=== PATIENT | female | born 1950 | race African-American/Black ===

== ENCOUNTER 2017-08-01 10:39 | Outpatient (CLI) | payer OTHER ==
[2017-08-01 11:40] LABS: PTT 30.1 SEC (22.9-36.1); Prothrombin Time 13.7 SEC (12.0-14.7)
[2017-08-01 11:42] LABS: Hemoglobin 12.4 g/dL (12.0-16.0); Mean Corpuscular HGB CONC 32.1 g/dL (32.0-36.0); Mean Corpuscular Volume 90.2 fl (81.0-99.0); Mean Platelet Volume 8.3 fL (7.4-10.4); Platelet Count 265 thou/uL (130-400); RBC Distribution Width 12.6 % (11.5-14.5); Red Blood Cell (RBC) Count 4.27 mill/uL (4.20-5.40); White Blood Cell (WBC) Count 7.2 thou/uL (4.8-10.8)
[2017-08-01 12:00] LABS: ALT (SGPT) 16 U/L (8-55); AST (SGOT) 15 U/L (5-34); Albumin 4.2 g/dL (3.4-4.8); Alkaline Phosphatase 91 U/L (40-150); Anion Gap 14 mmol/L (10-20); BUN (Urea Nitrogen) 10 mg/dL (9.8-20.1); Bilirubin, Total 0.9 mg/dL (0.2-1.2); Calc. Creatinine Clearance 0 mL/min (70-130); Calcium 9.5 mg/dL (7.8-10.44); Carbon Dioxide 22 mmol/L (23-31); Chloride 109 mmol/L (98-107); Estimated GFR-MDRD 80; Globulin 3.7 g/dL (2.4-3.5); Glucose 200 mg/dL (80-115); Potassium 3.7 mmol/L (3.5-5.1); Protein, Total 7.9 g/dL (6.0-8.3); Sodium 141 mmol/L (136-145)
== END 2017-08-01 10:40 | disposition home or self-care (01) ==
LOC: LABBT 10:39
PROVIDERS: ATTEND Internal Medicine Cardiovascular Disease
DX: Z01.818 Encounter for other preprocedural examination (principal); R94.39 Abnormal result of other cardiovascular function study
CPT/HCPCS: 80053; 85027; 85610; 85730; 93005; 93010

== ENCOUNTER 2017-08-06 05:41 | Day surgery (SDC) | payer OTHER ==
[2017-08-01 11:19] VITALS: BMI 50.1
[2017-08-06] MEDS ORDERED: Iopamidol 370 76% 50 ML VIAL FS ONE (06:39)
[2017-08-06] MEDS ORDERED: Iopamidol 370 76% 100 ML VIAL ONE (06:39)
[2017-08-06] MEDS ORDERED: Heparin 10,000 UNITS/1 ML VIAL ONE (06:41)
[2017-08-06] MEDS ORDERED: Lidocaine 1% (PF) 30 ML VIAL ONE (06:43)
[2017-08-06] MEDS ORDERED: hydrALAZINE 20 MG/ML VIAL ONE ×3 (07:20→12:44)
--- NOTE | 2017-08-06 07:33 | RAD ---
CHEST 1 VIEW PORTABLE: Date: 08/06/17 HISTORY: 66-year-old female with history of preoperative evaluation for heart catheterization. COMPARISON: 12/24/02. FINDINGS: Mild cardiomegaly. Minimal stable increased linear and interstitial markings in the perihilar regions . There is review of prior exam from 08/12/06 as well. No confluent pneumonia, overt edema, or other acute process. IMPRESSION: Large body habitus lowers the sensitivity of this study. Minimal cardiomegaly with stable increased m arkings bilaterally without evidence for confluent pneumonia or overt edema. POS: OFF
[2017-08-06] MEDS ORDERED: Metoprolol Tartrate 5 MG/5 ML VIAL ONE ×2 (07:44→08:44)
[2017-08-06] MEDS ORDERED: Protamine Sulfate 50 MG/5 ML VIAL ONE (07:56)
[2017-08-06] MEDS ORDERED: Carvedilol 6.25 MG TAB PO SCH ×2 (08:15→16:30)
[2017-08-06] MEDS ORDERED: Nitroglycerin 4.9 GM Bottle ONE (08:44)
[2017-08-06] MEDS ORDERED: traMADol HCl 50 MG TAB ONE (12:49)
[2017-08-06] MEDS ORDERED: Acetaminophen/Codeine 30-300mg Tablet PO PRN ×2 (13:21)
[2017-08-06] MEDS ORDERED: Sodium Chloride 0.9% 1,000 ML IV SCH (13:21)
[2017-08-06] MEDS ORDERED: Nitroglycerin 0.4 MG TAB (25 Tab Bottle) SL PRN (13:21)
[2017-08-06] MEDS ORDERED: traMADol HCl 50 MG TAB PO PRN (13:21)
[2017-08-06] MEDS ORDERED: Lisinopril 10 MG TAB ONE (15:56)
[2017-08-06] MEDS ORDERED: Carvedilol 3.125 MG TAB ONE ×2 (16:06)
[2017-08-06] MEDS ORDERED: Lisinopril 20 MG TAB PO SCH (16:30)
== END 2017-08-06 16:50 | disposition home or self-care (01) ==
LOC: CCL 05:41
PROVIDERS: ATTEND Internal Medicine Cardiovascular Disease
PROC: 4A023N7 Measurement of Cardiac Sampling and Pressure, Left Heart, Percutaneous Approach (ICD-10-PCS; principal; 2017-08-06)
DX: R94.39 Abnormal result of other cardiovascular function study (principal); I11.0 Hypertensive heart disease with heart failure; I50.9 Heart failure, unspecified; I42.9 Cardiomyopathy, unspecified; E11.9 Type 2 diabetes mellitus without complications; M19.90 Unspecified osteoarthritis, unspecified site; G47.33 Obstructive sleep apnea (adult) (pediatric); E78.00 Pure hypercholesterolemia, unspecified; E66.09 Other obesity due to excess calories; Z68.43 Body mass index [BMI] 50.0-59.9, adult; Z88.0 Allergy status to penicillin
CPT/HCPCS: 71045; 76942; 93458; 96374; C1769; J0360; J1610; J1644; J2001; J2720

== ENCOUNTER 2017-08-28 20:30 | Outpatient (CLI) | payer OTHER | END 2017-08-28 20:31 | disposition home or self-care (01) | LOC: SLEEPLAB 20:30 | PROVIDERS: ATTEND Family Medicine | DX: G47.33 Obstructive sleep apnea (adult) (pediatric) (principal); G47.9 Sleep disorder, unspecified; R51 Headache; I10 Essential (primary) hypertension | CPT/HCPCS: 95811 ==

== ENCOUNTER 2018-02-14 13:25 | Outpatient (CLI) | payer MEDICARE, OTHER | END 2018-02-14 13:26 | disposition home or self-care (01) | LOC: BICMAMMO 13:25 | PROVIDERS: ATTEND Family Medicine | DX: Z12.31 Encounter for screening mammogram for malignant neoplasm of breast (principal); Z80.3 Family history of malignant neoplasm of breast | CPT/HCPCS: 77063; 77067 ==

== ENCOUNTER 2018-04-24 11:22 | Emergency (ER) | payer MEDICARE, MEDICAID ==
[2018-04-24 13:09] LABS: #Eosinphils 0.2 thou/uL (0.0-0.7); #Lymphocytes 1.9 thou/uL (1.20-3.40); #Monocytes 0.4 thou/uL (0.11-0.59); #Neutrophils 2.9 thou/uL (1.40-6.50); %Basophils 0.7 % (0.0-1.0); %Eosinophils 3.4 % (0.0-10.0); %Lymphocytes 34.8 % (21.0-51.0); %Monocytes 7.8 % (0.0-10.0); %Neutrophils 53.3 % (42.0-75.0); Hemoglobin 13.4 g/dL (12.0-16.0); Mean Corpuscular HGB CONC 32.7 g/dL (32.0-36.0); Mean Corpuscular Hemoglobin 30.5 pg (27.0-31.0); Mean Corpuscular Volume 93.2 fL (78.0-98.0); Mean Platelet Volume 9.4 fL (7.4-10.4); Platelet Count 187 thou/uL (130-400); RBC Distribution Width 11.9 % (11.5-14.5); Red Blood Cell (RBC) Count 4.39 mill/uL (4.20-5.40); White Blood Cell (WBC) Count 5.5 thou/uL (4.8-10.8)
[2018-04-24 13:29] LABS: ALT (SGPT) 9 U/L (8-55); AST (SGOT) 11 U/L (5-34); Albumin 3.7 g/dL (3.4-4.8); Alkaline Phosphatase 114 U/L (40-150); Anion Gap 12 mmol/L (10-20); BUN (Urea Nitrogen) 8 mg/dL (9.8-20.1); Bilirubin, Total 0.7 mg/dL (0.2-1.2); Calc. Creatinine Clearance 0 mL/min (70-130); Calcium 9.5 mg/dL (7.8-10.44); Carbon Dioxide 24 mmol/L (23-31); Chloride 105 mmol/L (98-107); Estimated GFR-MDRD 64; Globulin 3.6 g/dL (2.4-3.5); Glucose 329 mg/dL (80-115); Potassium 3.8 mmol/L (3.5-5.1); Protein, Total 7.3 g/dL (6.0-8.3); Sodium 137 mmol/L (136-145)
[2018-04-24 14:37] LABS: Bilirubin Negative (Negative); Blood, Urine Negative (Negative); Clarity CLEAR (Clear); Glucose, Urine (Dipstick) >=1000 mg/dL (Negative); Leukocyte Negative (Negative); Nitrite Negative (Negative); Protein, Urine (Dipstick) Negative (Neg-Trace); Specific Gravity, Urine 1.032 (1.002-1.036)
[2018-04-24] MEDS ORDERED: Insulin Regular 300 UNITS/3 ML VIAL ONE (15:18)
== END 2018-04-24 15:50 | disposition home or self-care (01) ==
LOC: ERS 11:22
DX: E13.65 Other specified diabetes mellitus with hyperglycemia (principal); I10 Essential (primary) hypertension; G47.30 Sleep apnea, unspecified; E78.5 Hyperlipidemia, unspecified; Z79.899 Other long term (current) drug therapy; Z79.4 Long term (current) use of insulin
CPT/HCPCS: 36415; 36416; 80053; 81003; 85025; 99283; J1815

== ENCOUNTER 2019-01-29 12:59 | Emergency (ER) | payer MEDICARE, OTHER ==
[2019-01-29 13:38] LABS: #Basophils 0.1 thou/uL (0.0-0.2); #Eosinphils 0.1 thou/uL (0.0-0.7); #Lymphocytes 2.1 thou/uL (1.20-3.40); #Monocytes 0.8 thou/uL (0.11-0.59); #Neutrophils 5.6 thou/uL (1.40-6.50); %Basophils 0.6 % (0.0-1.0); %Eosinophils 1.1 % (0.0-10.0); %Lymphocytes 24.7 % (21.0-51.0); %Monocytes 9.3 % (0.0-10.0); %Neutrophils 64.4 % (42.0-75.0); Hemoglobin 11.7 g/dL (12.0-16.0); Mean Corpuscular HGB CONC 32.5 g/dL (32.0-36.0); Mean Corpuscular Hemoglobin 29.9 pg (27.0-31.0); Mean Platelet Volume 7.8 fL (7.4-10.4); Platelet Count 246 thou/uL (130-400); RBC Distribution Width 12.8 % (11.5-14.5); Red Blood Cell (RBC) Count 3.92 mill/uL (4.20-5.40); White Blood Cell (WBC) Count 8.7 thou/uL (4.8-10.8)
[2019-01-29 13:57] LABS: ALT (SGPT) 12 U/L (8-55); AST (SGOT) 10 U/L (5-34); Albumin 4.1 g/dL (3.4-4.8); Alkaline Phosphatase 99 U/L (40-110); Anion Gap 12 mmol/L (10-20); BUN (Urea Nitrogen) 17 mg/dL (9.8-20.1); Bilirubin, Total 0.3 mg/dL (0.2-1.2); Calc. Creatinine Clearance 0 mL/min (70-130); Calcium 9.7 mg/dL (7.8-10.44); Carbon Dioxide 27 mmol/L (23-31); Chloride 106 mmol/L (98-107); Estimated GFR-MDRD 59; Globulin 3.7 g/dL (2.4-3.5); Glucose 163 mg/dL (80-115); Potassium 3.8 mmol/L (3.5-5.1); Protein, Total 7.8 g/dL (6.0-8.3); Sodium 141 mmol/L (136-145)
[2019-01-29] MEDS ORDERED: hydrALAZINE 10 MG TAB PO SCH (14:45)
== END 2019-01-29 15:03 | disposition home or self-care (01) ==
LOC: ERS 12:59
DX: I10 Essential (primary) hypertension (principal); E11.9 Type 2 diabetes mellitus without complications; E78.00 Pure hypercholesterolemia, unspecified; Z79.899 Other long term (current) drug therapy; Z79.4 Long term (current) use of insulin
CPT/HCPCS: 80053; 83880; 84484; 85025; 93005

== ENCOUNTER 2019-03-03 13:13 | Outpatient (CLI) | payer MEDICARE, MEDICAID ==
--- NOTE | 2019-03-03 15:01 | BD ---
DEXA BONE DENSITY STUDY: HISTORY: Postmenopausal. LUMBAR SPINE BMD (g/cm2) T-SCORE L1 1.060 +0.6 L2 1.095 +0.6 L3 1.063 -0.2 L4 0.982 -0.7 TOTAL 1.046 +0.0 LEFT FEMORAL NECK 1.051 +1.8 TOTAL 1.115 +1.4 IMPRESSION: Normal bone mineral density of the lumbar spine and left femoral neck. POS: JEFFREY
--- NOTE | 2019-03-03 15:53 | MMO ---
Bilateral MAMMO Bilat Screen DDI+AGNES. CLINICAL HISTORY: Patient is 68 years old and is seen for screening. The patient has no family history of breast cancer. The patient has no personal history of cancer. VIEWS: The views performed were: bilateral craniocaudal with tomosynthesis and bilateral mediolateral oblique with tomosynthesis. FILMS COMPARED: The present examination has been compared to a prior imaging study performed at [facility] on 02/14/2018. This study has been interpreted with the assistance of computer-aided detection. MAMMOGRAM FINDINGS: There are scattered fibroglandular densities. There are benign appearing calcifications seen in both breasts. There are no suspicious masses, suspicious calcifications, or new areas of architectural distortion. IMPRESSION: THERE IS NO MAMMOGRAPHIC EVIDENCE OF MALIGNANCY. A ROUTINE FOLLOW-UP MAMMOGRAM IN 1 YEAR IS RECOMMENDED. THE RESULTS OF THIS EXAM WERE SENT TO THE PATIENT. ACR BI-RADS Category 2 - Benign finding MAMMOGRAPHY NOTE: 1. A negative mammogram report should not delay a biopsy if a dominant of clinically suspicious mass is present. 2. Approximately 10% to 15% of breast cancers are not detected by mammography. 3. Adenosis and dense breasts may obscure an underlying neoplasm. Reported by: FRANKIE GIRALDO MD Electonically Signed: [id number]
== END 2019-03-03 13:14 | disposition home or self-care (01) ==
LOC: BICMAMMO 13:13
PROVIDERS: ATTEND Family Medicine
DX: Z12.31 Encounter for screening mammogram for malignant neoplasm of breast (principal); Z13.820 Encounter for screening for osteoporosis; Z78.0 Asymptomatic menopausal state
CPT/HCPCS: 77063; 77067; 77080

== ENCOUNTER 2019-08-17 08:59 | Outpatient (CLI) | payer MEDICARE, MEDICAID, OTHER ==
[2019-08-17 17:08] LABS: Hemoglobin 12.5 g/dL (12.0-16.0); Mean Corpuscular HGB CONC 31.8 g/dL (32.0-36.0); Mean Corpuscular Volume 91.1 fL (78.0-98.0); Mean Platelet Volume 8.5 fL (7.4-10.4); Platelet Count 243 thou/uL (130-400); RBC Distribution Width 13.3 % (11.5-14.5); Red Blood Cell (RBC) Count 4.31 mill/uL (4.20-5.40); White Blood Cell (WBC) Count 8.3 thou/uL (4.8-10.8)
[2019-08-17 17:25] LABS: Anion Gap 12 mmol/L (10-20); BUN (Urea Nitrogen) 16 mg/dL (9.8-20.1); Calc. Creatinine Clearance 0 mL/min (70-130); Calcium 9.9 mg/dL (7.8-10.44); Carbon Dioxide 26 mmol/L (23-31); Chloride 108 mmol/L (98-107); Estimated GFR-MDRD 48; Glucose 117 mg/dL (80-115); Potassium 4.2 mmol/L (3.5-5.1); Sodium 142 mmol/L (136-145)
[2019-08-18 11:12] LABS: SARS-CoV-2 MS2 Positive; SARS-CoV-2 N Gene Negative; SARS-CoV-2 S Gene Negative; SARS-CoV-2 orf1ab Negative
== END 2019-08-17 09:00 | disposition home or self-care (01) ==
LOC: LABBT 08:59
PROVIDERS: ATTEND Orthopaedic Surgery
DX: Z01.818 Encounter for other preprocedural examination (principal); Z11.59 Encounter for screening for other viral diseases; M13.842 Other specified arthritis, left hand
CPT/HCPCS: 80048; 85027; 93005; U0003; 87635; 93010

== ENCOUNTER 2019-08-20 09:25 | Day surgery (SDC) | payer MEDICARE, MEDICAID ==
[2019-08-17 16:05] VITALS: BMI 45.8
[2019-08-20] MEDS ORDERED: Clindamycin/D5W 900 mg/50 ml Premix Bag ONE (10:01)
[2019-08-20] MEDS ORDERED: Fentanyl 100 MCG/2 ML VIAL ONE (11:29)
[2019-08-20] MEDS ORDERED: Lidocaine 2% Jelly 5 ML TUBE ONE (11:39)
[2019-08-20] MEDS ORDERED: Bupivacaine PF 0.5% 30 ML VIAL ONE (12:22)
[2019-08-20] MEDS ORDERED: PHENYLEPHRINE-NS 100 MCG/ML 10 ML SYRINGE ONE ×2 (12:39→12:43)
[2019-08-20] MEDS ORDERED: Lidocaine 1% PF 5 ML VIAL ONE (12:43)
[2019-08-20] MEDS ORDERED: Glycopyrrolate 0.2 MG/ML 5 ML SYRINGE ONE (12:43)
[2019-08-20] MEDS ORDERED: Ondansetron PF 4 MG/2 ML Vial ONE (12:43)
[2019-08-20] MEDS ORDERED: PROPOFOL 200 MG/20 ML VIAL ONE (12:43)
[2019-08-20] MEDS ORDERED: Succinylcholine Chloride 20 MG/ML 10 ml SYRINGE FS ONE (12:43)
[2019-08-20] MEDS ORDERED: Rocuronium Bromide 10 MG/ML (10ML VIAL) ONE (12:43)
[2019-08-20] MEDS ORDERED: EPHEDRINE 25 MG/5 ML SYRINGE ONE (12:43)
--- NOTE | 2019-08-20 14:24 | RAD ---
LEFT WRIST: 08/20/19 Three fluoroscopic images from OR are presented. INDICATIONS: Intraoperative imaging during carpal tunnel procedure. FINDINGS/IMPRESSION: These images demonstrate partial imaging of the carpals and imaging of the metacarpals. Evidence of o perative change at the first carpometacarpal joint. POS: AGW
--- NOTE | 2019-08-20 20:04 | OP ---
DATE OF PROCEDURE: 08/20/2019 PREOPERATIVE DIAGNOSES: 1. Severe arthritis of the first carpometacarpal joint of the left thumb. 2. Left carpal tunnel syndrome. POSTOPERATIVE DIAGNOSES: 1. Severe arthritis of the first carpometacarpal joint of the left thumb. 2. Left carpal tunnel syndrome. PROCEDURES PERFORMED: 1. Soft tissue arthroplasty of the first carpometacarpal joint of the left thumb. 2. Left carpal tunnel release. ANESTHESIA: General. DESCRIPTION OF PROCEDURE: The patient was given preoperative IV antibiotics, taken to the operating room, placed in supine position. Satisfactory general anesthesia was performed. The left upper extremity was sterilely prepped and draped in usual fashion. After exsanguination, tourniquet of the left arm was raised to 250 mmHg. Initially, a longitudinal incision was made over the carpal canal, approximately 1.5 cm in length. Blunt and sharp dissection was made down through the palmar fascia. Median nerve was identified and using the [employer] carpal tunnel release instruments, the interval between the median nerve and the transverse carpal ligament was isolated and the special scalpel used to cut the transverse carpal ligament, made sure there was no constrictive tissue into the palm or proximally into the wrist. Median nerve was completely released. The wound was irrigated and closed with 3-0 Rapide. A curvilinear incision was then made starting on the dorsum at the base of the thumb and extending around to the area of the flexor carpi radialis. Blunt dissection was made. The first dorsal compartment tendons were retracted volarly, and the lower half of the distal portion of the trapezium was removed. There was severe arthritis at the first carpometacarpal joint. The flexor carpi radialis tendon was then followed up into the forearm through two other separate incisions that were approximately 4 cm in length and the radial half of the flexor carpi radialis tendon was harvested and still left intact at the base of the second metacarpal. It was brought through a hole at the base of the first metacarpal and out the radial base of the first metacarpal. 2-0 FiberWire was then sutured at the base of the hole, where the flexor carpi radialis tendon was still attached to the second metacarpal. The tendon was brought through the base and out the radial aspect of the first metacarpal was then sutured into a ball using #2 FiberWire and was held in place using the 2-0 FiberWire. This provided good soft tissue repair. This was augmented with a #2 FiberWire with TightRope from the base of the first metacarpal to the proximal aspect of the second metacarpal. The wounds were then copiously irrigated and then closed using 3-0 Rapide. All the wounds were then infiltrated with 0.5% Marcaine plain. Sterile dressing along with a short-arm thumb spica splint was applied. The tourniquet was released. The patient was awakened, extubated, and transferred to recovery room in stable condition. ESTIMATED BLOOD LOSS: None. COMPLICATIONS: None. TOURNIQUET TIME: 75 minutes. DISCHARGE MEDICATIONS: Tramadol 50 mg one every 6 hours as needed for pain, #40. Follow up in my office next week. Job ID: [id number]
== END 2019-08-20 16:40 | disposition home or self-care (01) ==
LOC: SDC 09:25
PROVIDERS: ATTEND Orthopaedic Surgery
PROC: 01N50ZZ Release Median Nerve, Open Approach (ICD-10-PCS; principal; 2019-08-20)
PROC: 0LX80ZZ Transfer Left Hand Tendon, Open Approach (ICD-10-PCS; 2019-08-20)
PROC: 0RUT07Z Supplement Left Carpometacarpal Joint with Autologous Tissue Substitute, Open Approach (ICD-10-PCS; 2019-08-20)
DX: M18.12 Unilateral primary osteoarthritis of first carpometacarpal joint, left hand (principal); G56.02 Carpal tunnel syndrome, left upper limb; J45.909 Unspecified asthma, uncomplicated; E11.9 Type 2 diabetes mellitus without complications; I10 Essential (primary) hypertension; G47.30 Sleep apnea, unspecified; F32.9 Major depressive disorder, single episode, unspecified; E78.00 Pure hypercholesterolemia, unspecified; Z79.1 Long term (current) use of non-steroidal anti-inflammatories (NSAID); Z79.4 Long term (current) use of insulin; Z79.899 Other long term (current) drug therapy; Z88.0 Allergy status to penicillin; Z96.642 Presence of left artificial hip joint; Z96.653 Presence of artificial knee joint, bilateral
CPT/HCPCS: 36416; 76000; J2001; J2405; J2704; J3010; J3490; S0020

== ENCOUNTER 2019-11-22 05:28 | Emergency (ER) | payer MEDICARE, MEDICAID | END 2019-11-22 08:29 | LOC: ERS 05:28 | DX: J45.909 Unspecified asthma, uncomplicated (principal); G47.30 Sleep apnea, unspecified; E11.9 Type 2 diabetes mellitus without complications; E78.00 Pure hypercholesterolemia, unspecified; I10 Essential (primary) hypertension | CPT/HCPCS: 94640; J7620 ==

== ENCOUNTER 2019-11-22 21:30 | Emergency (ER) | payer MEDICARE, MEDICAID ==
[2019-11-22] MEDS ORDERED: Benzonatate 100 MG CAP ONE (22:25)
--- NOTE | 2019-11-23 07:38 | RAD ---
PORTABLE CHEST: HISTORY: Dyspnea. COMPARISON: 08/06/2017 study. FINDINGS: Heart size is enlarged. Mediastinal structures appear unremarkable. The lungs appear clear of any i nfiltrative process. No signs of failure. IMPRESSION: Cardiomegaly. No definitive acute changes. POS: OFF
[2019-11-23 11:42] LABS: SARS-CoV-2 MS2 Positive; SARS-CoV-2 N Gene Negative; SARS-CoV-2 S Gene Negative; SARS-CoV-2 by NAA Not Detected (NotDetected); SARS-CoV-2 orf1ab Negative
== END 2019-11-22 23:17 | disposition home or self-care (01) ==
LOC: ERS 21:30
DX: R05 Cough (principal); Z20.828 Contact with and (suspected) exposure to other viral communicable diseases; G47.30 Sleep apnea, unspecified; E11.9 Type 2 diabetes mellitus without complications; E78.00 Pure hypercholesterolemia, unspecified; I10 Essential (primary) hypertension
CPT/HCPCS: 71045; 94640; 99284; U0003; 87635; J7620

== ENCOUNTER 2020-02-15 16:45 | Inpatient (IN) | payer MEDICARE, MEDICAID ==
[~2020-02-15 16:45] MED LIST: Heparin 1,000 UNITS/ML VIAL ONE; Magnevist 469MG/ML 20 ML VIAL ONE
[2020-02-15 19:59] LABS: #Basophils 0.1 thou/uL (0.0-0.2); #Eosinphils 0.1 thou/uL (0.0-0.7); #Lymphocytes 1.1 thou/uL (1.20-3.40); #Monocytes 1.5 thou/uL (0.11-0.59); #Neutrophils 12.3 thou/uL (1.40-6.50); %Basophils 0.4 % (0.0-1.0); %Eosinophils 0.5 % (0.0-10.0); %Lymphocytes 7.3 % (21.0-51.0); %Monocytes 9.8 % (0.0-10.0); Hemoglobin 11.6 g/dL (12.0-16.0); Mean Corpuscular HGB CONC 31.6 g/dL (32.0-36.0); Mean Corpuscular Hemoglobin 29.1 pg (27.0-31.0); Mean Corpuscular Volume 92.2 fL (78.0-98.0); Mean Platelet Volume 8.3 fL (7.4-10.4); Platelet Count 279 thou/uL (130-400); RBC Distribution Width 13.4 % (11.5-14.5); Red Blood Cell (RBC) Count 3.97 mill/uL (4.20-5.40)
[2020-02-15 20:08] LABS: Bilirubin Negative (Negative); Blood, Urine Trace (Negative); Clarity Turbid (Clear); Glucose, Urine (Dipstick) Greater than 1000 mg/dL (Negative); Ketone, Urine Negative (Negative); Leukocyte 250 Leu/uL (Negative); Nitrite Negative (Negative); Protein, Urine (Dipstick) 70 mg/dL (Neg-Trace); Specific Gravity, Urine 1.019 (1.002-1.036)
[2020-02-15 20:19] LABS: Bacteria/HPF 1+ HPF (None Seen)
[2020-02-15 20:22] LABS: ALT (SGPT) 28 U/L (8-55); AST (SGOT) 25 U/L (5-34); Albumin 3.7 g/dL (3.4-4.8); Alkaline Phosphatase 184 U/L (40-110); Anion Gap 17 mmol/L (10-20); BUN (Urea Nitrogen) 18 mg/dL (9.8-20.1); Bilirubin, Total 0.8 mg/dL (0.2-1.2); Calc. Creatinine Clearance 0 mL/min (70-130); Calcium 9.6 mg/dL (7.8-10.44); Carbon Dioxide 21 mmol/L (23-31); Chloride 98 mmol/L (98-107); Globulin 4.9 g/dL (2.4-3.5); Glucose 372 mg/dL (80-115); Lipase 4 U/L (8-78); Protein, Total 8.6 g/dL (6.0-8.3); Sodium 132 mmol/L (136-145)
[2020-02-15 21:44] LABS: Bilirubin Negative (Negative); Blood, Urine 1+ (Negative); Clarity Clear (Clear); Glucose, Urine (Dipstick) Greater than 1000 mg/dL (Negative); Ketone, Urine Negative (Negative); Leukocyte Negative Leu/uL (Negative); Nitrite Negative (Negative); Protein, Urine (Dipstick) 200 mg/dL (Neg-Trace); Renal Epithelial 0-3 HPF (None Seen); Specific Gravity, Urine 1.021 (1.002-1.036); Squamous Epithelial 0-3 HPF (0-3); WBC/HPF 0-3 HPF (0-3)
[2020-02-15 21:50] LABS: Bacteria/HPF Rare-Few HPF (None Seen)
--- NOTE | 2020-02-15 22:30 | CT ---
CT OF THE ABDOMEN AND PELVIS WITHOUT IV CONTRAST INDICATION: Back pain COMPARISON: None FINDINGS: The lack of IV contrast limits evaluation of the solid organs of the abdomen and pelvis. ABDOMEN: Lung bases: Clear Liver: No focal lesion. Gallbladder: Surgically absent Pancreas: Normal. Adrenal glands: Normal. Spleen: Normal. Kidneys and ureters: No renal or ureteral calculus is evident. There are numerous phleboliths within the right gonadal vein seen anterior to the right ureter. No definite ureteral calculus or hydronephrosis is evident. Vasculature: Normal. Lymph nodes:No lymphadenopathy. Free fluid in abdomen:No free fluid is evident. PELVIS: Small and large bowel: Normal Appendix:Normal Bladder: Normal. Rectal and perirectal soft tissues:Normal. Reproductive structures: Normal. Free fluid in pelvis: No free fluid is evident. Lymphadenopathy pelvis: No lymphadenopathy is evident. Osseous structures: There is bilateral total hip prostheses. The right total hip prosthesis was place d on December 08, 2019 at the [facility]. There is an 11.8 x 7 cm fluid and gas collection extending from the anterior aspect of the right hip joint into the right anterolateral per iarticular soft tissues consistent with a large right hip periarticular abscess. The extent of the collection is suspicious for continuity with the right hip joint. The left total hip prosthesis revea ls no acute abnormality. No acute fracture is evident. There is scattered degenerative and osteoarthritic changes. Soft tissues:As above IMPRESSION: 1. Large right anterolateral periarticular soft tissue abscess extending into the anterior aspect of the right hip joint.
[2020-02-15] MEDS ORDERED: Morphine 4 MG/ML VIAL ONE (22:40)
[2020-02-15] MEDS ORDERED: Cefepime 2 GM VIAL ONE (22:41)
[2020-02-15 23:22] LABS: Lactic Acid 1.1 mmol/L (0.5-2.2)
--- NOTE | 2020-02-16 00:22 | MRI ---
MR OF THE THORACIC SPINE WITH AND WITHOUT CONTRAST INDICATION: Epidural abscess TECHNIQUE: Multiplanar multisequence MR images were obtained of the thoracic spine with and without c ontrast. Spine count series was provided. 10 cc of MultiHance was utilized for the exam. COMPARISON: None FINDINGS: Motion artifact limits details of the examination, particularly on the postcontrast image s eries. Bone marrow signal intensity: Normal Spinal alignment: Normal Spinal cord: Normal signal intensity and contour. Paravertebral soft tissues: Normal Vertebral levels: T1-T2: No appreciable central canal or neural foraminal narrowing is evident. T2-T3: There is a left foraminal disc protrusion causing mild narrowing of the left neural foramina. T3-T4: There is a left paracentral to left foraminal protrusion causing mild narrowing of the left ne ural foramina.. T4-T5: There is a left foraminal disc protrusion causing mild left-sided neural foraminal narrowing. T5-T6: There is a broad-based disc bulge with a superimposed right paracentral disc protrusion causin g mild central canal narrowing and mild bilateral neural foraminal narrowing. T6-T7: There is a broad-based disc bulge causing mild central canal narrowing. T7-T8: There is a mild broad-based bulge without appreciable neural foraminal narrowing. There is mil d central canal narrowing. T8-T9: There is a mild broad-based bulge inducing mild central canal narrowing. T9-T10: There is a mild broad-based bulge with mild central canal narrowing. T10-T11: There is a mild broad-based bulge inducing mild central canal narrowing and mild bilateral n eural foraminal narrowing. T11-T12: No appreciable central canal or neural foraminal narrowing. T12-L1: No appreciable central canal or neural foraminal narrowing. Additional findings: No definite abnormal contrast enhancement is demonstrated. IMPRESSION: 1. Moderate multilevel thoracic spondylosis with multilevel disc bulges and disc protrusions as detai led above. Most prominent is seen at T5-6 with there is a moderate size right paracentral disc protrusion causing mild central canal narrowing. This is superimposed on a broad-based disc bulge ind ucing mild bilateral neural foraminal narrowing. 2. No overt evidence to suggest presence of an epidural abscess.
--- NOTE | 2020-02-16 00:27 | MRI ---
MR the lumbar spine with and without contrast INDICATION: Evaluate for epidural abscess COMPARISON: None. TECHNIQUE: Multiplanar multisequence MR images were obtained of lumbar spine with and without IV cont rast. Contrast: 10 cc of MultiHance. FINDINGS: Bone marrow: Normal. Distal spinal cord and conus: Normal. Conus is seen to terminate at the L1 level. Visualized retroperitoneum and paraspinal soft tissues: Normal. No lymphadenopathy demonstrated. Vertebral levels: L5-S1: There is a broad-based disc bulge with facet hypertrophy inducing mild right neural foraminal narrowing. L4-5: There is a broad-based disc bulge with facet hypertrophy inducing mild bilateral neural foramin al narrowing, right greater than left. L3-4: There is a mild broad-based disc bulge and facet hypertrophy inducing mild bilateral neural for aminal narrowing. L2-3: There is a broad-based disc bulge with a superimposed right paracentral, cephalad extending dis c extrusion. The extrusion measures 9.4 mm and extends along the posterior aspect of the L2 vertebra. There is moderate central canal narrowing at this level. There is mild bilateral neural for aminal narrowing. L1-L2: There is a mild broad-based bulge but no appreciable central canal or neural foraminal narrowi ng. T12-L1: No appreciable central canal or neuroforaminal narrowing. Postcontrast series: No abnormal enhancement demonstrated. IMPRESSION: 1. No evidence to suggest epidural abscess. 2. Broad-based disc bulge with a superimposed right cephalad extending paracentral disc extrusion at L2-3 causing moderate central canal narrowing. There is mild bilateral neural foraminal narrowing at this level. 3. Mild bilateral neural foraminal narrowing at L4-5, right greater than left. 4. Mild right neural foraminal narrowing at L5-S1.
[2020-02-16] MEDS ORDERED: Acetaminophen 325 MG TAB ONE ×2 (00:41→02:32)
[2020-02-16] MEDS ORDERED: Vancomycin 1 GM/200 ML BAG ONE ×4 (00:41→12:27)
[2020-02-16] MEDS ORDERED: Acetaminophen 650 MG Suppository PR PRN (01:09)
[2020-02-16] MEDS ORDERED: Ondansetron PF 4 MG/2 ML Vial IVP PRN (01:09)
[2020-02-16] MEDS ORDERED: Calcium Carbonate 500 MG ChewTAB PO PRN (01:09)
[2020-02-16] MEDS ORDERED: Ondansetron ODT 4 MG TAB PO PRN (01:09)
--- NOTE | 2020-02-16 01:21 | PDOC.HHP ---
Hospitalist HPI - History of Present Illness back and groin pain History of Present Illness: Case of an 69y/o female with a pmhx of htn, ckd hdl and DM who comes to hospital due to progressive pain R hip pain. patient states she was on her usual state of health until 4 days ago when she started with R hip pain for which she came to hospital today. patient was initially evaluated and found to be on sepsis for which sepsis bundles where initiated. patient underwent ct and mri imaging which showed a considerable abscess on her R hip. patient underwent b/l hip replacement 2 months ago. orthopedic surgeon was notified and hospitalist was called for admission. patient denies any fever chills, print inspector does refer some hypoactive changes and generalize weakness Hospitalist ROS - Review of Systems All other systems reviewed; all pertinent +/- noted in HPI/Subj Hospitalist History - Past Surgical History Past Surgical History: reports: Cholecystectomy, Hysterectomy, Total Hip Repla cement, Total Knee Replacement - Family History Family History: reports: diabetes mellitus, hyperlipidemia - Social History Smoking Status: Never smoker Alcohol: reports: Occassional Drugs: reports: none Living Situation: With Family - Exam General Appearance: ill appearing Eye: PERRL, anicteric sclera ENT: normocephalic atraumatic, no oropharyngeal lesions Neck: supple, symmetric, no JVD, no thyromegaly Heart: no murmur, no gallops Heart - other findings: tachycardic Respiratory: CTAB, no wheezes, no rales, no ronchi Gastrointestinal: soft, non-tender, non-distended, normal bowel sounds Extremities: no cyanosis, no clubbing, no edema Skin: normal turgor, no lesions, no rashes Neurological: cranial nerve grossly intact, normal sensation to touch, no weakness Musculoskeletal: normal tone, normal strength, no muscle wasting Psychiatric: normal affect, normal behavior, A&O x 3, somnolent Hospitalist Results - Labs Result Diagrams: 02/15/20 19:45 02/15/20 19:45 Lab results: WBC 15.0 thou/uL (4.8-10.8) H 02/15/20 19:45 Hgb 11.6 g/dL (12.0-16.0) L 02/15/20 19:45 Hct 36.6 % (36.0-47.0) 02/15/20 19:45 MCV 92.2 fL (78.0-98.0) 02/15/20 19:45 Plt Count 279 thou/uL (130-400) 02/15/20 19:45 Neutrophils % 82.0 % (42.0-75.0) H 02/15/20 19:45 ESR Westergren Greater than 130 mm/hr (Less than 30) H 02/15/20 19:44 Sodium 132 mmol/L (136-145) L 02/15/20 19:45 Potassium 4.0 mmol/L (3.5-5.1) 02/15/20 19:45 Chloride 98 mmol/L (98-107) 02/15/20 19:45 Carbon Dioxide 21 mmol/L (23-31) L 02/15/20 19:45 BUN 18 mg/dL (9.8-20.1) 02/15/20 19:45 Creatinine 1.59 mg/dL (0.6-1.1) H 02/15/20 19:45 Glucose 372 mg/dL (80-115) H 02/15/20 19:45 Lactic Acid 1.1 mmol/L (0.5-2.2) 02/15/20 22:34 Calcium 9.6 mg/dL (7.8-10.44) 02/15/20 19:45 Total Bilirubin 0.8 mg/dL (0.2-1.2) 02/15/20 19:45 AST 25 U/L (5-34) 02/15/20 19:45 ALT 28 U/L (8-55) 02/15/20 19:45 Alkaline Phosphatase 184 U/L (40-110) H 02/15/20 19:45 C-Reactive Protein 46.01 mg/dL (= or < 0.5) H 02/15/20 19:44 Serum Total Protein 8.6 g/dL (6.0-8.3) H 02/15/20 19:45 Albumin 3.7 g/dL (3.4-4.8) 02/15/20 19:45 Lipase 4 U/L (8-78) L 02/15/20 19:45 Urine Ketones Negative mg/dL (Negative) 02/15/20 21:25 Urine Blood 1+ (Negative) A 02/15/20 21:25 Urine Nitrite Negative (Negative) 02/15/20 21:25 Ur Leukocyte Esterase Negative Imelda/uL (Negative) 02/15/20 21:25 Urine RBC 4-6 HPF (0-3) A 02/15/20 21:25 Urine WBC 0-3 HPF (0-3) 02/15/20 21:25 Ur Squamous Epith Cells 0-3 HPF (0-3) 02/15/20 21:25 Urine Bacteria Rare-Few HPF (None Seen) 02/15/20 21:25 Hospitalist H&P A/P - Problem (1) Status post hip replacement Code(s): Z96.649 - PRESENCE OF UNSPECIFIED ARTIFICIAL HIP JOINT Status: Acute (2) Sepsis Code(s): A41.9 - SEPSIS, UNSPECIFIED ORGANISM Status: Acute (3) Abscess after procedure Code(s): T81.49XA - INFECTION FOLLOWING A PROCEDURE, OTHER SURGICAL SITE, INIT Status: Acute (4) JOHN (acute kidney injury) Code(s): N17.9 - ACUTE KIDNEY FAILURE, UNSPECIFIED Status: Acute (5) HTN (hypertension) Code(s): I10 - ESSENTIAL (PRIMARY) HYPERTENSION Status: Acute (6) Diabetes Code(s): E11.9 - TYPE 2 DIABETES MELLITUS WITHOUT COMPLICATIONS Status: Acute (7) Hypercholesteremia Code(s): E78.00 - PURE HYPERCHOLESTEROLEMIA, UNSPECIFIED Status: Acute - Plan Plan: 69y/o female with the stated pmhx who presents with sepsis secondary to R hip abscess sepsis secondary to R hip abscess - elevated wbc + elevated LA with an abc ct showing r hip abscess - hx of recent hip replacement - sepsis bundles started ivfs given, cultures taken and pt started on broad spectrum abx - orhto notified will taken pt to OR tomorrow - ID consult - continue vanc + cefepime - f/u cultures - f/u LA acute over chronic kidney injury - continue with IVFs - f/u renal function and u/o DM - uncontorlled - long acting insulin - acc+ss htn -holding medication in setting of sepsis, restart when more stable
[2020-02-16] MEDS ORDERED: Dextrose 5% in Water 1,000 ML IV PRN (01:24)
[2020-02-16] MEDS ORDERED: Dextrose 50% Abboject 50 ML SYRINGE SLOW IVP PRN (01:24)
[2020-02-16 03:28] VITALS: BMI 50.1
[2020-02-16] MEDS ORDERED: Vancomycin 1 GM in Premix Bag 1 BAG IVPB SCH (03:45)
[2020-02-16] MEDS: Sodium Chloride 0.9% 1,000 ML IV SCH ×3 (04:35→20:59)
[2020-02-16 07:04] LABS: Hemoglobin 10.4 g/dL (12.0-16.0); Mean Corpuscular HGB CONC 32.6 g/dL (32.0-36.0); Mean Corpuscular Hemoglobin 29.6 pg (27.0-31.0); Mean Corpuscular Volume 90.7 fL (78.0-98.0); Mean Platelet Volume 8.5 fL (7.4-10.4); Platelet Count 240 thou/uL (130-400); RBC Distribution Width 13.4 % (11.5-14.5); Red Blood Cell (RBC) Count 3.53 mill/uL (4.20-5.40)
[2020-02-16 07:16] LABS: ALT (SGPT) 25 U/L (8-55); AST (SGOT) 20 U/L (5-34); Albumin 3.2 g/dL (3.4-4.8); Alkaline Phosphatase 149 U/L (40-110); Anion Gap 18 mmol/L (10-20); BUN (Urea Nitrogen) 13 mg/dL (9.8-20.1); Bilirubin, Total 0.9 mg/dL (0.2-1.2); Calc. Creatinine Clearance 86 mL/min (70-130); Calcium 9.2 mg/dL (7.8-10.44); Carbon Dioxide 17 mmol/L (23-31); Chloride 101 mmol/L (98-107); Globulin 4.4 g/dL (2.4-3.5); Glucose 384 mg/dL (80-115); Potassium 3.7 mmol/L (3.5-5.1); Protein, Total 7.6 g/dL (6.0-8.3); Sodium 132 mmol/L (136-145)
[2020-02-16 07:42] LABS: Band 18 % (5-11); Lymphocytes 9 % (21-51); MDiff Complete? YES; Monocytes 9 % (0-10); Neutrophil 64 % (42-75); Platelet Morphology Comment Appears Adequate; Polychromasia SLIGHT = 2-3 cells (100X) (0-2/hpf)
[2020-02-16 08:49] LABS: SARS-CoV-2 MS2 Positive; SARS-CoV-2 N Gene Negative; SARS-CoV-2 S Gene Negative; SARS-CoV-2 by NAA Not Detected (NotDetected); SARS-CoV-2 orf1ab Negative
[2020-02-16] MEDS: Enoxaparin Sodium 40 MG/0.4 ML SYRINGE SC SCH (09:09)
[2020-02-16] MEDS ORDERED: HumaLOG 300 UNITS/3 ML VIAL ONE (09:13)
[2020-02-16] MEDS ORDERED: Cefepime 2 GM VIAL ONE (09:13)
[2020-02-16] MEDS: HumaLOG 300 UNITS/3 ML VIAL SC PRN (09:20)
[2020-02-16] MEDS: Cefepime 2 GM in Sodium Chloride 0.9% 100 ML IVPB SCH ×2 (09:30→20:59)
--- NOTE | 2020-02-16 10:35 | PRG ---
DATE OF SERVICE: 02/16/2020 TIME OF SERVICE: 9:45 a.m. CONSULTATIONS ON THE CASE: Infectious Disease as well as Orthopedics. SUBJECTIVE: The patient is seen and evaluated at bedside. The patient continues to complain of insomnia associated with the right hip pain with 1-inch scab on the surgical scar area. OBJECTIVE: VITAL SIGNS: Heart rate of 105 per minute, respiratory rate of 16 per minute, blood pressure of 146/68 mmHg, saturation 100% on room air. Has an airway which is clear. HEENT: Atraumatic and normocephalic. NECK: Supple. No bruits. No lymphadenopathy. CVS: S1 and S2, normal rhythm. No murmurs. CHEST: Bilateral air entry present. No rhonchi. No wheeze. ABDOMEN: Soft, nontender. Bowel sounds are present. No organomegaly. EXTREMITIES: No cyanosis, no edema. NEUROLOGIC: The patient is alert and oriented x3. No focal motor or sensory deficits noted. HEME: No ecchymosis or petechiae. PSYCH: No depression. CURRENT MEDICATIONS: 1. Tylenol 650 mg every 4 hours. 2. Maxipime 2 g every 12 hours. 3. Lovenox 40 mg subcu, which is on hold for procedure. 4. Hydralazine 10 mg every 4 hours p.r.n. for blood pressure elevation. 5. We will hold the patient's glipizide and the patient currently on insulin glargine as well as Humalog insulin. 6. Pantoprazole 40 mg daily. 7. Rosuvastatin 40 mg daily. 8. Vancomycin 2 g every 24 hours. LABORATORY DATA: WBCs 12.0, hemoglobin 10.4, hematocrit 32.0, platelets are 240. Sodium 132, potassium 3.7, chloride 101, carbon dioxide 17, BUN 13, creatinine 1.29, glucose 384 mg/dL. Lactic acid is 2.5, normalized to 1.1. AST 20, ALT 25. Lipase is 4. Urinalysis has been reviewed. SARS-CoV-2 PCR analysis not detected. IMAGING STUDIES: CT of the abdomen and pelvis has been reviewed, showing evidence of anterior abscess lesion from previous surgical area. ASSESSMENT: 1. Sepsis. The patient currently on Maxipime as well as vancomycin. 2. History of hip replacement on the right side with iatrogenic infection of the surgical site with abscess. Infectious Disease as well as Orthopedic consultation have been obtained. Awaiting official replacement of the patient's hip joint along with continuation of IV antibiotics. 3. Acute renal failure, likely prerenal in nature. The patient on gentle hydration at this point of time. 4. Benign essential hypertension, well controlled. 5. Diabetes mellitus type 2, insulin dependent. The patient has been advised about holding glipizide at this point of time and continue the patient on long-acting insulin as well as Humalog low-dose sliding scale insulin, along with hypoglycemia precautions. 6. Hyperlipidemia, on rosuvastatin. 7. Hyponatremia, likely dilutional in nature. PLAN: Discussed in detail about the diagnosis, treatment, and followup with the patient. I advised the patient about continuation of IV antibiotics, continuation of insulin at this point of time, and she is n.p.o. for possibility of procedure. We will follow official consultation and evaluation by Orthopedics as well as Infectious Disease. Continue gentle hydration and diabetes, blood sugar management. Advanced directives are full code. DVT prophylaxis in the hold with SCDs as prescribed. Discharge plan will depend on surgical and antibiotic recommendations. The patient might eventually benefit from transitioning to inpatient rehabilitation versus prison facility. Job ID: [id number]
[2020-02-16] MEDS ORDERED: Ondansetron PF 4 MG/2 ML Vial ONE (11:55)
[2020-02-16] MEDS ORDERED: PHENYLEPHRINE-NS 100 MCG/ML 10 ML SYRINGE ONE (11:55)
[2020-02-16] MEDS ORDERED: Lidocaine 1% PF 5 ML VIAL ONE (11:55)
[2020-02-16] MEDS ORDERED: Rocuronium Bromide 10 MG/ML (10ML VIAL) ONE (11:55)
[2020-02-16] MEDS ORDERED: PROPOFOL 200 MG/20 ML VIAL ONE (11:55)
[2020-02-16] MEDS ORDERED: SUGAMMADEX SODIUM 200 MG/2 ML VIAL ONE (16:38)
[2020-02-16] MEDS ORDERED: Fentanyl 100 MCG/2 ML VIAL ONE ×2 (16:38→16:55)
[2020-02-16] MEDS ORDERED: Neomycin-Polymyxin 1 ML AMP ONE (16:51)
[2020-02-16] MEDS ORDERED: Dexmedetomidine 200 MCG/2 ML VIAL ONE (17:21)
[2020-02-16] MEDS ORDERED: HYDROmorphone 0.5 MG/0.5 ML SYRINGE ONE (17:21)
[2020-02-16] MEDS ORDERED: HYDROmorphone 2 MG/ML VIAL SLOW IVP PRN (19:07)
[2020-02-16] MEDS ORDERED: Promethazine HCl 25 MG/ML VIAL IM PRN (19:07)
[2020-02-16] MEDS ORDERED: Ondansetron HCl/PF 4 MG/2 ML Vial IVP PRN (19:07)
[2020-02-16] MEDS ORDERED: Promethazine HCl 25 MG/ML VIAL SLOW IVP PRN (19:07)
[2020-02-16] MEDS: Rosuvastatin 20 MG TAB PO SCH (20:59)
[2020-02-16] MEDS: Carvedilol 6.25 MG TAB PO SCH (20:59)
[2020-02-16] MEDS: Insulin Glargine 20 UNITS in Pre-Filled Syringe 1 EACH SC SCH (23:14)
--- NOTE | 2020-02-17 00:26 | OP ---
DATE OF PROCEDURE: 02/16/2020 PREOPERATIVE DIAGNOSIS: Abscess formation, anterolateral aspect of the proximal right thigh. POSTOPERATIVE DIAGNOSIS: Abscess formation, anterolateral aspect of the proximal right thigh. This abscess does directly communicate with the right total hip replacement. PROCEDURE PERFORMED: Irrigation and debridement of the abscess of right hip and thigh. ANESTHESIA: General. DESCRIPTION OF PROCEDURE: The patient had been receiving IV antibiotics throughout the night and day. She was taken to the operating room, placed in supine position. Satisfactory general anesthesia was performed. The patient was placed in left lateral decubitus position on a knox bag, and the right hip and lower extremity were sterilely prepped and draped in usual fashion. An incision was made through the previous scar on the lateral aspect of the hip. The fatty layer was sharply incised and then beyond the iliotibial band, purulent drainage was encountered and evacuated and there was at least 600 mL of the abscess fluid that was obtained. This fluid was also sent for culture and sensitivity, Gram stain, cell count. The wound was then irrigated with antibiotic solution with a Pulsavac, followed by irrigation with Betadine. This was then irrigated out. This was followed by hygiene peroxide and then again using the Pulsavac and antibiotic solution, the hip area was copiously irrigated. The remaining wound looked good. There was no necrotic tissue. The wound was then packed using Betadine-soaked Kerlix and then it was covered with 4x4s, ABDs. The patient was then awakened, extubated, and transferred to recovery room in stable condition. ESTIMATED BLOOD LOSS: Minimal. COMPLICATIONS: None. PLAN: Plan on returning with the patient later on this week for additional irrigation and debridement. Job ID: [id number]
--- NOTE | 2020-02-17 00:36 | HP ---
HISTORY OF PRESENT ILLNESS: The patient is a 69-year-old female who underwent a right total hip replacement 2 months ago. The patient was seen by me in the office 1 week prior to admission and she was doing very well, feeling good, and her pain in the right hip was decreasing. The patient states that 4 days prior to admission, which is 3 days after she saw me, she started having some increased right hip pain and started feeling poorly. She presented to the emergency room on February 14, and the patient was noted to have a low-grade temperature. Her highest temperature recorded from the emergency room was 100.7, blood pressure was 194/76, pulse 127, respiratory rate 22, O2 saturation 95% on room air. The patient had a CT scan of the pelvis and MRI performed which showed a collection of fluid on the anterior lateral aspect of the right hip extending anterior lateral, periarticular soft tissue abscess and extended into the right hip joint. Patient's laboratory showed a white count on admission of 15, hemoglobin 11.6, hematocrit 36.6. Sedimentation rate was greater than 130. Sodium was slightly low at 132. Creatinine was high at 1.59. Glucose was 372. Lactic acid is 2.5. C-reactive protein is 46.01. UA showed 1+ urine bacteria, negative ketones. She was COVID negative. The patient was diagnosed with abscess of the right hip and was started on IV antibiotics. She did have blood cultures obtained and as of this morning, she did grow out Staph aureus from one of the blood cultures. PAST MEDICAL HISTORY: Medical illnesses: Hypertension, chronic kidney disease, diabetes mellitus. PAST SURGICAL HISTORY: Cholecystectomy, hysterectomy, right total hip replacement, right total knee replacement. SOCIAL HISTORY: She was never a smoker. Occasional alcohol. No drugs. PHYSICAL EXAMINATION: GENERAL: The patient is awake and alert. She does appear to be slightly sick. HEENT: Unremarkable for age. NEUROLOGICAL: Cranial nerves 2 through 12 are grossly intact. NECK: Good range of motion without pain. THORACIC AND LUMBAR SPINE: Mildly tender to palpation. LUNGS: Clear bilaterally. HEART: Regular rate and rhythm. ABDOMEN: Soft and nontender. Bowel sounds positive. : Not done. EXTREMITIES: Unable to move the right hip passively, but this does cause pain. The right lower extremity is neurovascularly intact. The incision on the lateral aspect of the right hip shows that it is well healed. There is one small superficial area in the lower portion just posterior to the incision that is superficially open, but there is no erythema. IMPRESSION: 1. Abscess formation in the right hip and thigh region, presumptively from the blood cultures is Staph aureus. 2. Diabetes mellitus. 3. Chronic kidney disease. 4. Hypertension. 5. Hyperlipidemia. 6. Hyponatremia. PLAN: The patient will be taken to the operating room where irrigation and debridement of the abscess will be performed. I plan on leaving the wound open packing it and going back later on this week for additional irrigation and debridement. The patient did report that she did see a dentist about 4 or 5 days ago, but does not think that anything was done that could have seeded her blood and then the hip. So, at this point, the exact nature, etiology of infection is unknown. Infectious disease consult has been obtained and they will take care of any antibiotic medication. Job ID: [id number]
[2020-02-17] MEDS: HYDROcodone/Acetaminophen 10/325 mg Tablet PO PRN ×4 (01:44→21:18)
[2020-02-17 05:07] LABS: #Monocytes 1.5 thou/uL (0.11-0.59); #Neutrophils 13.1 thou/uL (1.40-6.50); %Eosinophils 0.2 % (0.0-10.0); %Lymphocytes 11.9 % (21.0-51.0); %Neutrophils 78.9 % (42.0-75.0); Mean Corpuscular HGB CONC 32.2 g/dL (32.0-36.0); Mean Corpuscular Hemoglobin 29.4 pg (27.0-31.0); Mean Corpuscular Volume 91.5 fL (78.0-98.0); Mean Platelet Volume 8.5 fL (7.4-10.4); Platelet Count 229 thou/uL (130-400); RBC Distribution Width 13.5 % (11.5-14.5); Red Blood Cell (RBC) Count 3.07 mill/uL (4.20-5.40); White Blood Cell (WBC) Count 16.7 thou/uL (4.8-10.8)
[2020-02-17 05:16] LABS: ALT (SGPT) 23 U/L (8-55); AST (SGOT) 18 U/L (5-34); Albumin 2.7 g/dL (3.4-4.8); Alkaline Phosphatase 127 U/L (40-110); Anion Gap 17 mmol/L (10-20); BUN (Urea Nitrogen) 12 mg/dL (9.8-20.1); Bilirubin, Total 0.6 mg/dL (0.2-1.2); Calc. Creatinine Clearance 79 mL/min (70-130); Calcium 8.4 mg/dL (7.8-10.44); Carbon Dioxide 17 mmol/L (23-31); Chloride 105 mmol/L (98-107); Globulin 3.9 g/dL (2.4-3.5); Glucose 273 mg/dL (80-115); Potassium 3.7 mmol/L (3.5-5.1); Protein, Total 6.6 g/dL (6.0-8.3); Sodium 135 mmol/L (136-145)
[2020-02-17] MEDS: HumaLOG 300 UNITS/3 ML VIAL SC PRN ×3 (06:34→16:51)
[2020-02-17] MEDS: Carvedilol 6.25 MG TAB PO SCH ×2 (10:12→21:35)
[2020-02-17] MEDS: Lisinopril 20 MG TAB PO SCH (10:12)
[2020-02-17] MEDS: Enoxaparin Sodium 40 MG/0.4 ML SYRINGE SC SCH (10:12)
[2020-02-17] MEDS: Cefepime 2 GM in Sodium Chloride 0.9% 100 ML IVPB SCH ×2 (10:13→21:35)
[2020-02-17] MEDS: Sodium Chloride 0.9% 1,000 ML IV SCH ×2 (10:16→16:50)
--- NOTE | 2020-02-17 10:44 | PRG ---
DATE OF SERVICE: 02/17/2020 CONSULTATIONS ON THE CASE: 1. Cesar Sutton MD, Orthopedics. 2. Misael Ann MD, Infectious Disease. SUBJECTIVE: Patient is seen and evaluated at bedside. The patient is status post surgery with debridement and draining of 600 mL of abscess. The patient remains afebrile though in postsurgical pain. Time of service is 8:30 a.m. OBJECTIVE: VITAL SIGNS: Has a temperature of 99.2 degrees Fahrenheit, heart rate of 98 per minute, respiratory rate of 16 per minute, saturation 98%. Blood pressure of 115/55 mmHg. Has an airway which is clear. HEENT: Atraumatic, normocephalic. NECK: Supple. No bruit. No lymphadenopathy. CV: S1, S2. No abnormal rhythms or murmurs. CHEST: Bilateral air entry present. No rhonchi. No wheeze. ABDOMEN: Soft, nontender. Bowel sounds are present. No organomegaly. EXTREMITIES: No cyanosis, no edema. Postsurgical dressing noted on the right foot area. The patient has a wound VAC at the right hip in place. NEUROLOGIC: Patient is alert and oriented x3. No focal motor or sensory deficits noted. HEME: No ecchymosis or petechiae. PSYCH: No depression. DIAGNOSTICS: Blood culture sensitivities shows evidence of Staphylococcus aureus and the patient's hip fluid review also shows the same. Urine culture is negative. WBC 16.7, hemoglobin 9.0, hematocrit 28.1, platelets are 229. MEDICATIONS: 1. Zofran 4 mg q.6 p.r.n. 2. Tylenol 650 mg q.4 p.r.n. 3. Lisinopril 40 mg daily. 4. Vancomycin 2 g daily. 5. Lovenox 40 mg for DVT prophylaxis, currently not given because of surgery. 6. Coreg 12.5 mg b.i.d. 7. Maxipime 2 g daily. 8. Hydralazine for p.r.n. blood pressure. 9. Crestor 40 mg daily. 10. Insulin glargine 20 units daily along with sliding scale insulin protocol. 11. Pain management pantoprazole 40 mg daily. ASSESSMENT: 1. Sepsis likely secondary to patient's right hip abscess along with bacteremia, currently resolving. 2. Gram-positive bacteremia. Patient currently on IV vancomycin and Maxipime. Infectious Disease consulted. 3. Right hip replacement with recurrent history of abscess, status post debridement and irrigation. The patient on IV antibiotics. 4. Acute renal failure, prerenal nature, optimizing. 5. Benign essential hypertension, well controlled on p.r.n. hydralazine. 6. Diabetes mellitus type 2, on long-acting insulin as well as Humalog low-dose sliding scale insulin protocol. 7. Hyperlipidemia, on rosuvastatin. 8. Hyponatremia, resolved. PLAN: Discussed in detail about the diagnosis, treatment, and followup with the patient. I have advised the patient about continuation of IV antibiotics. Follow up cultures. Follow up echocardiogram evaluation to rule out vegetations. Follow up with Infectious Disease evaluation and recommendations in regard to antibiotics and long-term care. Advanced directives are full code. Job ID: [id number]
--- NOTE | 2020-02-17 15:34 | CON ---
DATE OF CONSULTATION: 02/17/2020 REASON FOR CONSULTATION: Right hip arthroplasty infection. HISTORY OF PRESENT ILLNESS: A 69-year-old with history of hypertension, obesity, type 2 diabetes, osteoarthritis, as well as CKD stage 3, who has had multiple joint replacements including bilateral hips and knees. The latest one was done in November by Dr. Sutton, and the patient has been transferred to rehab after the procedure. There, she noticed the drainage from one of the ends of the incision, which healed without reportedly any specific intervention, so she did well in December, and then in January, she noticed an opening at the end of the incision again with some drainage. More recently, she developed progressively worsening low back pain with radiation towards the lower extremities and groin area, more on the right than on the left, but also some on the left. Did not have any headaches, although she does have them now intermittently. No sore throat, odynophagia, or dysphagia. No visual symptoms. No dyspnea. Some cough with yellow sputum production over the past few days. No chest pain. No abdominal pain. Voiding without difficulty. She noticed some change in her urine odor recently. No other joint symptoms noticeable at this time. Initial findings included BP 160/70, pulse 127, respirations 20, temperature 97.9, and O2 saturation 98 on room air. The next temperature was 100.7 in the emergency room. She was tachycardic and appeared in pain moderate in the right hip and back area. HEENT examination was normal. Heart examination showed tachycardia. Lung exam with normal breath sounds. Abdomen was soft and not distended. Range of motion was possible in both hips with more tenderness on the right. Other findings; white cell count 15,000, hemoglobin 11, platelets 279, and 82% neutrophils. Sodium 132 and creatinine 1.59 with a baseline of 1.04 on 01/07/2019. The CRP was 46. Albumin 3.7. Urinalysis with 0-3 wbc's. SARS-CoV-[address] scan of the pelvis and an MRI showed a collection fluid in the anterior lateral aspect of the right hip, extending into the right hip joint, so she had a surgical procedure on 02/15. Operative report was reviewed. Incision made through the previous scar in the lateral aspect of the hip. Purulent drainage encountered and evacuated, at least 600 mL of abscess fluid obtained. The area was irrigated and then packed and covered with ABD. It looks like a plan is for returning the patient for further irrigation later this week. Currently, Ms. Werner is having moderate pain at site. She has a little bit of a headache. No dyspnea. A little bit of cough with some sputum production. Still with a low back pain, which is quite intense. Voiding without difficulty. No neurological symptoms. MEDICAL HISTORY: 1. Obesity. 2. Type 2 diabetes. 3. Hypertension. 4. Cholecystectomy. 5. Hysterectomy. 6. Hip replacements, bilateral. 7. Knee replacements, bilateral. SOCIAL HISTORY: Never smoker. Retired. CURRENT MEDICATIONS: 1. Cefepime. 2. Dextrose. 3. Enoxaparin. 4. Fentanyl. 5. Hydralazine. 6. Hydrocodone. 7. Insulin. 8. Lisinopril. 9. Ondansetron. 10. Rosuvastatin. 11. Vancomycin. PHYSICAL EXAMINATION: VITAL SIGNS: T-max 99.2, blood pressure 130/60, heart rate 108, respirations 16, and O2 saturation 98 on 2 L. GENERAL: Does not appear in distress. She was somnolent when I arrived, but she perked up pretty quickly. SKIN: The right hip wound is covered with dressing, which was not removed. She has a peripheral IV access and is voiding in the diaper. No lymphadenopathy. HEENT: Ocular movements conjugate. Oral cavity normal. NECK: Supple. LUNGS: Symmetric, clear breath sounds. HEART: S1 and S2. Regular rate without murmurs. ABDOMEN: Soft, not distended or tender. No ascites. No bladder distention. MUSCULOSKELETAL: Pain in right hip and other joints without inflammatory activity noted. EXTREMITIES: Trace edema in lower extremities. Pulses 1+ in dorsalis pedis. Cap refill normal. Limitations of motion in the right lower extremity due to the inflammatory process. NEUROLOGIC: She is awake, oriented, was drowsy at the beginning, but she woke up, really well oriented. Speech normal. LABORATORY DATA: Followup labs: White cell count 16,000, hemoglobin 9, platelets 229, and 78% neutrophils. Creatinine is down to 1.34. GFR at 50. Microbiology with Staph aureus. Two sets of blood cultures, Staph aureus from the hip fluid. The organism in the blood culture is found to be methicillin-susceptible. ASSESSMENT: 1. Type 2 diabetes. 2. Obesity. 3. Hypertension. 4. Osteoarthritis with multiple joint replacements. 5. Bacteremia 6. 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 The patient has had one-hour washout, apparently scheduled for the 2nd washout. At this point, we will switch her to cefazolin 2 g q.8 + Rifampin. The plan is long-term treatment and initially IV with cefazolin + rifampin and then transition to Keflex and rifampin. Add rifampin initially as well the 1st 42 days. After completion of the oral Keflex and rifampin for 3 months, switch to Keflex suppressive therapy indefinitely. The presence of bacteremia adds another layer of complexity due to the possibility of distant dissemination of MSSA to other sites including any of the current other arthroplasties. Job ID: [id number] MTDD
--- NOTE | 2020-02-17 20:06 | PRG ---
DATE OF SERVICE: 02/17/2020 SUBJECTIVE: Ms. Acuna underwent irrigation and debridement of right hip and thigh yesterday. Cultures from that were obtained from the abscess at the time of surgery is growing out Staph aureus. She also had blood cultures that were drawn when she first arrived to the emergency room and they are also growing out what appears to be the same bacteria the Staph aureus. The patient states that she has pain in the right hip, but overall she feels better. OBJECTIVE: VITAL SIGNS: The patient has been afebrile. Her vital signs have been stable. Her blood pressure has been 115/55. EXTREMITIES: The right lower extremity is neurovascularly intact. LABORATORY DATA: This morning showed white count 16.7, hemoglobin 9, hematocrit 28.1. Sodium was slightly low 135, creatinine 1.34. PLAN: The patient will be taken back to the operating room tomorrow morning for additional irrigation and debridement of the right hip and thigh. Plan on having Wound Care place a wound VAC over the area at that time. She will continue with IV antibiotics. Dr. Ann has been consulted and will guide the team on what antibiotics and for how long she will need those. Job ID: [id number]
[2020-02-17] MEDS ORDERED: FLU VACC QS2020-21(65YR UP)/PF 240 MCG/0.7 ML SYRINGE IM ONE (21:00)
[2020-02-17] MEDS: Rosuvastatin 20 MG TAB PO SCH (21:35)
[2020-02-17] MEDS: Acetaminophen 325 MG TAB PO PRN (21:35)
[2020-02-17] MEDS: Insulin Glargine 20 UNITS in Pre-Filled Syringe 1 EACH SC SCH (21:53)
[2020-02-18] MEDS: Sodium Chloride 0.9% 1,000 ML IV SCH ×2 (01:36→15:31)
[2020-02-18 01:56] LABS: Vancomycin, Trough 16.7 ug/mL
[2020-02-18 04:21] LABS: ALT (SGPT) 27 U/L (8-55); AST (SGOT) 28 U/L (5-34); Albumin 2.6 g/dL (3.4-4.8); Alkaline Phosphatase 131 U/L (40-110); Anion Gap 14 mmol/L (10-20); BUN (Urea Nitrogen) 18 mg/dL (9.8-20.1); Bilirubin, Total 0.5 mg/dL (0.2-1.2); Calc. Creatinine Clearance 63 mL/min (70-130); Calcium 8.3 mg/dL (7.8-10.44); Carbon Dioxide 18 mmol/L (23-31); Chloride 107 mmol/L (98-107); Globulin 3.7 g/dL (2.4-3.5); Glucose 158 mg/dL (80-115); Potassium 3.8 mmol/L (3.5-5.1); Protein, Total 6.3 g/dL (6.0-8.3); Sodium 135 mmol/L (136-145)
[2020-02-18] MEDS: Acetaminophen 325 MG TAB PO PRN (04:22)
[2020-02-18 04:37] LABS: Band 8 % (5-11); Hemoglobin 8.4 g/dL (12.0-16.0); Hypochromia SLIGHT = 6-15 cells (100X) (0-5/hpf); Lymphocytes 9 % (21-51); MDiff Complete? YES; Mean Corpuscular HGB CONC 32.4 g/dL (32.0-36.0); Mean Corpuscular Hemoglobin 29.7 pg (27.0-31.0); Mean Corpuscular Volume 91.9 fL (78.0-98.0); Mean Platelet Volume 8.2 fL (7.4-10.4); Metamyelocyte 1 % (0-0); Monocytes 13 % (0-10); Neutrophil 69 % (42-75); Platelet Count 233 thou/uL (130-400); RBC Distribution Width 13.8 % (11.5-14.5); Red Blood Cell (RBC) Count 2.83 mill/uL (4.20-5.40); White Blood Cell (WBC) Count 17.5 thou/uL (4.8-10.8)
[2020-02-18] MEDS: Enoxaparin Sodium 40 MG/0.4 ML SYRINGE SC SCH (07:55)
[2020-02-18] MEDS ORDERED: Neomycin-Polymyxin 1 ML AMP ONE ×2 (09:51→10:26)
[2020-02-18] MEDS ORDERED: Fentanyl 100 MCG/2 ML VIAL ONE (09:55)
[2020-02-18] MEDS ORDERED: SUGAMMADEX SODIUM 200 MG/2 ML VIAL ONE (09:55)
[2020-02-18] MEDS ORDERED: Ondansetron PF 4 MG/2 ML Vial ONE (11:08)
[2020-02-18] MEDS ORDERED: Glycopyrrolate 0.2 MG/ML 5 ML SYRINGE ONE (11:08)
[2020-02-18] MEDS ORDERED: PROPOFOL 200 MG/20 ML VIAL ONE (11:08)
[2020-02-18] MEDS ORDERED: Rocuronium Bromide 10 MG/ML (10ML VIAL) ONE (11:08)
[2020-02-18] MEDS ORDERED: Lidocaine 1% PF 5 ML VIAL ONE (11:08)
[2020-02-18] MEDS ORDERED: PHENYLEPHRINE-NS 100 MCG/ML 10 ML SYRINGE ONE (11:08)
--- NOTE | 2020-02-18 11:19 | PRG ---
DATE OF SERVICE: 02/18/2020 TIME OF SERVICE: 08:15 a.m. CONSULTATIONS: On the case; 1. Dr. Cesar Sutton, Orthopedics. 2. Dr. Misael Ann, Infectious Disease. SUBJECTIVE: The patient was seen and evaluated at bedside. The patient still has postsurgical pain, currently receiving IV antibiotics. Status post 600 mL of abscess drainage with debridement and irrigation. OBJECTIVE: VITAL SIGNS: Temperature of 99 degrees Fahrenheit, heart rate of 93 per minute, respiratory rate of 20 per minute, saturation 98% on 2 L of oxygen, and has a blood pressure of 95/54 mmHg. She has an airway which is clear. HEENT: Atraumatic and normocephalic. CV: S1 and S2. Normal sinus rhythm. CHEST: Bilateral air entry present. No rhonchi. No wheeze. ABDOMEN: Soft and nontender. Bowel sounds are present. No organomegaly. EXTREMITIES: No cyanosis. No edema. NEUROLOGIC: The patient is alert, oriented, not in acute distress. No motor deficits noted. HEME: No ecchymosis or petechiae. PSYCH: No depression. DIAGNOSTIC STUDIES: WBCs 17.5, hemoglobin 8.4, hematocrit 26.0, and platelets are 233. Sodium 135, potassium 3.8, chloride 107, carbon dioxide is 18, BUN 18, and creatinine 1.67. Blood cultures shows evidence of methicillin sensitive Staphylococcus aureus x2 and hip fluid analysis shows similar growth sensitive to similar antibiotics. MEDICATIONS: 1. Cefazolin 2 g every 8 hours. 2. Rifampin 600 mg daily. 3. The patient on insulin sliding scale protocol. 4. Coreg 12.5 mg b.i.d. 5. Lisinopril 40 mg daily. 6. Tylenol 650 mg q.4h p.r.n. 7. Rosuvastatin 40 mg at bedtime. 8. [place] 10/325 q.4 p.r.n. 9. Protonix 40 mg daily. ASSESSMENT: 1. Sepsis secondary to right hip abscess. The patient currently is being switched over to IV cefazolin as well as rifampin. 2. Gram-positive bacteremia with methicillin-sensitive Staphylococcus aureus. The patient's current vancomycin and Maxipime are being transitioned to cefazolin as well as rifampin as recommended by Infectious Disease. 3. Right hip replacement with abscess formation, status post 600 mL of abscess drainage with irrigation and debridement. 4. Acute renal failure, likely prerenal in nature, optimizing. 5. Benign essential hypertension, on Coreg and lisinopril. 6. Diabetes mellitus type 2, on long-acting insulin along with sliding scale insulin protocol. 7. Hyperlipidemia, on Rosuvastatin. 8. Hyponatremia, resolved. PLAN: Discussed in detail about the diagnosis, treatment, and followup with the patient. Appreciate both Infectious Disease as well as orthopedic followup and recommendations. We are switching the patient's IV antibiotics from IV vancomycin and Maxipime to cefazolin and rifampin basing on methicillin-sensitive Staphylococcus aureus presence. This is long-term antibiotic course likely to almost 8 weeks for now. At some point of time, Physical Therapy and Occupational Therapy to be activated. Advanced directives are full code. Job ID: [id number]
[2020-02-18] MEDS ORDERED: Promethazine HCl 25 MG/ML VIAL IM PRN (11:37)
[2020-02-18] MEDS ORDERED: Promethazine HCl 25 MG/ML VIAL SLOW IVP PRN (11:37)
[2020-02-18] MEDS ORDERED: Ondansetron HCl/PF 4 MG/2 ML Vial IVP PRN (11:37)
[2020-02-18] MEDS: CEFAZOLIN 2 GM in Premix Bag 1 BAG IVPB SCH ×2 (12:06→20:22)
--- NOTE | 2020-02-18 12:07 | OP ---
DATE OF PROCEDURE: 02/18/2020 PREOPERATIVE DIAGNOSIS: The patient is status post infection with abscess formation in the right hip and thigh areas. She had previous irrigation and debridement 2 days ago. The wound was packed and left open. POSTOPERATIVE DIAGNOSIS: The patient is status post infection with abscess formation in the right hip and thigh area. She had previous irrigation and debridement 2 days ago. The wound was packed and left open. PROCEDURE PERFORMED: Irrigation and debridement of the right hip and thigh with closure of wound over 2 large drains. ANESTHESIA: General. DESCRIPTION OF PROCEDURE: The patient has been receiving IV antibiotics. She was taken to the operating room, placed in supine position. Satisfactory general anesthesia was performed. The patient was then placed on the operating room bed and then placed in the left lateral decubitus position with a beanbag. All bony prominences were well padded. The dressing that had been placed previously was removed. The right hip and thigh were sterilely prepped and draped in usual fashion. The wound was inspected. There were very small areas of some necrotic tissue, but the majority of it had good healthy tissue with some early granulation tissue. The wound was irrigated initially with Betadine and then hydrogen peroxide and then the wound was copiously irrigated with antibiotic solution using the high-speed tool crib supervisor. Two drains were then placed, one below the iliotibial band, one above it. It was a large Hemovac drain. The wound was then closed using #2 Vicryl for the iliotibial band, 0 Vicryl for the fat and subcutaneous tissue, and skin was closed with skin jean-pierre. Sterile dressing was applied. The patient was then awakened, extubated, transferred to recovery room in stable condition. ESTIMATED BLOOD LOSS: Minimal. COMPLICATIONS: None. Job ID: [id number]
[2020-02-18] MEDS: Lisinopril 20 MG TAB PO SCH (15:17)
[2020-02-18] MEDS: Fentanyl 100 MCG/2 ML VIAL SLOW IVP PRN (15:18)
[2020-02-18] MEDS: Carvedilol 6.25 MG TAB PO SCH ×3 (15:21→20:27)
[2020-02-18] MEDS: Rifampin 300 MG CAP PO SCH (15:23)
[2020-02-18] MEDS: HYDROcodone/Acetaminophen 10/325 mg Tablet PO PRN (16:49)
[2020-02-18] MEDS: Cefepime 2 GM in Sodium Chloride 0.9% 100 ML IVPB SCH (17:45)
[2020-02-18] MEDS: Rosuvastatin 20 MG TAB PO SCH (20:22)
[2020-02-18] MEDS: Insulin Glargine 20 UNITS in Pre-Filled Syringe 1 EACH SC SCH (21:56)
[2020-02-19] MEDS: CEFAZOLIN 2 GM in Premix Bag 1 BAG IVPB SCH ×3 (03:01→23:19)
[2020-02-19] MEDS: Sodium Chloride 0.9% 1,000 ML IV SCH ×3 (05:42→17:49)
[2020-02-19] MEDS: Fentanyl 100 MCG/2 ML VIAL SLOW IVP PRN (05:42)
[2020-02-19] MEDS: HYDROcodone/Acetaminophen 10/325 mg Tablet PO PRN ×3 (07:59→20:58)
[2020-02-19] MEDS: Enoxaparin Sodium 40 MG/0.4 ML SYRINGE SC SCH (08:01)
[2020-02-19] MEDS: Lisinopril 20 MG TAB PO SCH (08:01)
[2020-02-19] MEDS: Carvedilol 6.25 MG TAB PO SCH ×2 (08:01→20:58)
[2020-02-19] MEDS: Rifampin 300 MG CAP PO SCH (11:26)
[2020-02-19] MEDS: HumaLOG 300 UNITS/3 ML VIAL SC PRN (11:40)
--- NOTE | 2020-02-19 13:01 | SPC ---
Ultrasound and Fluoroscopic guided left upper extremity PICC placement HISTORY: Right hip infection. Patient needs long-term IV antibiotics. FINDINGS: Informed consent obtained prior to the procedure. An appropriate access site was determined with ultrasound guidance. The area was then meticulously pr epped and draped in usual sterile fashion. Skin overlying the left cephalic vein anesthetized with 1% buffered lidocaine. Utilizing direct sonog raphic guidance, vascular access is obtained via the left cephalic vein, and an 0.018in guidewire was advanced to the cavoatrial junction. Intravascular length is calculated at 40 cm, and the PICC is cut accordingly. Needle is removed and replaced with a peel-away sheath. The PICC was advanced over the wire. Wire and peel-away sheath were removed. The tip of the catheter overlies the cavoatrial junction. The catheter was accessed and aspirated/flushed easily. Exposure data: 0 minutes of fluoroscopic time 467 mGy centimeter squared FINDINGS: Technically successful placement of a 40 centimeter single lumen 5 [place] left upper extremity PICC l ine. IMPRESSION: Successful ultrasound guided placement of a left upper extremity PICC.
--- NOTE | 2020-02-19 13:06 | PRG ---
DATE OF SERVICE: 02/19/2020 TIME OF SERVICE: 11:00 a.m. CONSULTATIONS: On the case, 1. Dr. Cesar Sutton, Orthopedics. 2. Dr. Misael Ann, Infectious Disease. SUBJECTIVE: The patient was seen and evaluated at bedside. The patient is status post initial drain off right hip abscess and subsequent secondary closure with drain placement on 02/18/[address] Cesra Sutton. OBJECTIVE: VITAL SIGNS: The patient has a temperature of 98.4 degrees Fahrenheit, heart rate of 89 per minute, respiratory rate of 16 per minute, blood pressure of 132/60 mmHg, and saturation 98% on nasal cannula. Has an airway, which is clear. HEENT: Atraumatic, normocephalic. NECK: Supple. No bruit. No lymphadenopathy. CV: S1 and S2, normal sinus rhythm. CHEST: Bilateral air entry present. No rhonchi. No wheeze. ABDOMEN: Soft, nontender. Bowel sounds are present. EXTREMITIES: No cyanosis. No edema. Drains in place on the right hip area. No clubbing. HEME: No ecchymosis or petechiae. PSYCH: No depression. CURRENT MEDICATIONS: 1. Zofran 4 mg IV q.6 p.r.n. 2. Tylenol 650 mg q.4 p.r.n. 3. Lisinopril 40 mg daily. 4. Lovenox 40 mg daily. 5. Rifampin 600 mg daily. 6. Coreg 12.5 mg b.i.d. 7. Cefazolin 2 g three times a day. 8. Rosuvastatin 40 mg daily. 9. Hydralazine p.r.n. for blood pressure elevation. 10. Insulin glargine 20 units as scheduled as well as sliding-scale insulin protocol. 11. Pantoprazole 40 mg daily. DIAGNOSTICS: Blood cultures and wound culture sensitivities shows evidence of Staphylococcus aureus, MSSA, methicillin-sensitive Staphylococcus aureus. We will do a CBC, CMP tomorrow in a.m. ASSESSMENT: 1. Sepsis secondary to right hip abscess. The patient currently on cefazolin and rifampin. 2. Gram-positive bacteremia with methicillin-sensitive Staphylococcus aureus. The patient currently on cefazolin as well as rifampin. This will continue for 8-week course. 3. Right hip abscess, status post primary draining of 600 mL of abscess. Subsequently, secondary closure with drain placement on 02/18/2020. 4. Acute renal failure. Currently optimized. 5. Benign essential hypertension, on Coreg and lisinopril. 6. Diabetes mellitus, type 2 on long-acting insulin as well as sliding scale protocol with hypoglycemia precautions. 7. Hyperlipidemia, on rosuvastatin. 8. Hyponatremia, resolved. 9. Physical debility. We will act with Physical Therapy and Occupational Therapy. PLAN: Discussed in detail of the diagnosis, treatment, and followup with the patient at bedside. Reviewed the patient's case in detail with consultants. Advised about continuation of IV antibiotics at this point of time. Physical therapy and occupational therapy. Continue DVT and GI prophylaxis. Job ID: [id number]
--- NOTE | 2020-02-19 17:37 | PRG ---
DATE OF SERVICE: 02/19/2020 SUBJECTIVE: Still not feeling very well, little bit of cough, some sputum production. No headaches. No abdominal pain. Voiding without difficulty. Moderate right hip pain. Eating, but not much. OBJECTIVE: VITAL SIGNS: T-max 99.3, saturating 98% on 2 L nasal cannula O2 supplementation, BP 130/60, heart rate 89, respiratory rate 16. GENERAL: She is awake, oriented, alert. LUNGS: Clear. HEART: S1, S2. Regular rate. ABDOMEN AND EXTREMITIES: Soft, not distended. No bladder distention. Right hip site with a drain in place and she had a PICC line now in left upper extremity. Operative note from yesterday reviewed. Wound was inspected, very small areas of necrotic tissue. Wound irrigated. Two drains placed, one below and one above the iliotibial band. LABORATORY DATA: Sodium 135, creatinine is up to 1.67, GFR 37, transaminases normal, alkaline phosphatase 131, albumin 2.6. Methicillin-sensitive Staph aureus on February 14. ASSESSMENT AND DISCUSSION: Type 2 diabetes, obesity, hypertension, osteoarthritis, multiple joint replacements, bacteremia, right hip arthroplasty, MSSA infection. The patient had a 2nd irrigation. She still has the same implant in place. She is on rifampin and cefazolin. We will have to adjust the cefazolin dose to the decreasing GFR. She still has the drains in place and the plan is in terms of antimicrobial therapy still the same at this point in time, we will have to monitor closely renal function. She needs repeat blood cultures to monitor previous bacteremia. Also, again, as mentioned before, the risk of further dissemination to additional sites is a major concern. Job ID: [id number] [facility]
--- NOTE | 2020-02-19 19:56 | PRG ---
DATE OF SERVICE: 02/19/2020 SUBJECTIVE: Ms. Werner states that she is feeling much better. She does not feel sick. She did have a PICC line placed in preparation for long-term IV antibiotics. OBJECTIVE: VITAL SIGNS: The patient has been afebrile. Her last vital signs, pulse 89, respiratory rate 16, blood pressure 132/60, and O2 saturation 98% on 2 L. EXTREMITIES: The right lower extremity is neurovascularly intact and the drains are in place. Cultures do show MSSA and the patient currently is on Ancef and rifampin. PLAN: The patient will continue with IV antibiotics as per Dr. Ann. Case Management is working with the patient to put her in the appropriate placement since she would not be safe to be at home by herself, probably a custodial facility. She will continue work with therapy to get out of bed. She can fully weightbear on the right lower extremity. Job ID: [id number]
[2020-02-19] MEDS: Insulin Glargine 20 UNITS in Pre-Filled Syringe 1 EACH SC SCH (20:57)
[2020-02-19] MEDS: Rosuvastatin 20 MG TAB PO SCH (20:58)
[2020-02-20] MEDS: HYDROcodone/Acetaminophen 10/325 mg Tablet PO PRN ×4 (01:40→20:14)
[2020-02-20] MEDS: Sodium Chloride 0.9% 1,000 ML IV SCH ×3 (03:42→23:22)
[2020-02-20 04:45] LABS: #Eosinphils 0.2 thou/uL (0.0-0.7); #Lymphocytes 1.7 thou/uL (1.20-3.40); #Monocytes 1.3 thou/uL (0.11-0.59); #Neutrophils 14.8 thou/uL (1.40-6.50); %Basophils 0.1 % (0.0-1.0); %Eosinophils 1.1 % (0.0-10.0); %Lymphocytes 9.4 % (21.0-51.0); %Monocytes 7.1 % (0.0-10.0); %Neutrophils 82.4 % (42.0-75.0); Hemoglobin 8.5 g/dL (12.0-16.0); Mean Corpuscular HGB CONC 32.1 g/dL (32.0-36.0); Mean Corpuscular Hemoglobin 29.1 pg (27.0-31.0); Mean Corpuscular Volume 90.7 fL (78.0-98.0); Mean Platelet Volume 7.2 fL (7.4-10.4); Platelet Count 290 thou/uL (130-400); RBC Distribution Width 13.9 % (11.5-14.5); Red Blood Cell (RBC) Count 2.91 mill/uL (4.20-5.40)
[2020-02-20 05:14] LABS: ALT (SGPT) 10 U/L (8-55); AST (SGOT) 23 U/L (5-34); Albumin 2.4 g/dL (3.4-4.8); Alkaline Phosphatase 185 U/L (40-110); Anion Gap 13 mmol/L (10-20); BUN (Urea Nitrogen) 15 mg/dL (9.8-20.1); Calc. Creatinine Clearance 69 mL/min (70-130); Calcium 8.4 mg/dL (7.8-10.44); Carbon Dioxide 19 mmol/L (23-31); Chloride 109 mmol/L (98-107); Glucose 125 mg/dL (80-115); Potassium 3.4 mmol/L (3.5-5.1); Protein, Total 6.4 g/dL (6.0-8.3); Sodium 138 mmol/L (136-145)
[2020-02-20] MEDS: Carvedilol 6.25 MG TAB PO SCH ×2 (07:23→20:14)
[2020-02-20] MEDS: Enoxaparin Sodium 40 MG/0.4 ML SYRINGE SC SCH (07:23)
[2020-02-20] MEDS: Lisinopril 20 MG TAB PO SCH (07:24)
[2020-02-20] MEDS: Rifampin 300 MG CAP PO SCH (11:09)
[2020-02-20] MEDS: CEFAZOLIN 2 GM in Premix Bag 1 BAG IVPB SCH ×2 (11:10→23:21)
--- NOTE | 2020-02-20 11:23 | EKG ---
Test Reason : Blood Pressure : / mmHG Vent. Rate : 123 BPM Atrial Rate : 123 BPM P-R Int : 130 ms QRS Dur : 098 ms QT Int : 308 ms P-R-T Axes : 037 -14 102 degrees QTc Int : 440 ms Sinus tachycardia Left ventricular hypertrophy with repolarization abnormality Abnormal ECG Confirmed by ADRIANA CORONEL ([id number]), editor farm journal ALFA KING ([id number]) on 02/20/2020 11:22:42 AM Referred By: Confirmed By:ADRIANA CORONEL
--- NOTE | 2020-02-20 11:38 | PRG ---
DATE OF SERVICE: 02/20/2020 TIME OF SERVICE: 9 a.m. CONSULTATIONS ON THE CASE: 1. Dr. Cesar Sutton, Orthopedics. 2. Dr. Misael Ann, Infectious Disease. SUBJECTIVE: The patient was seen and evaluated at bedside. The patient is currently afebrile. Feels better. Continues to be on IV antibiotics. ALLERGIES: SILVER, CHLORHEXIDINE, MORPHINE, PENICILLINS, AND TRAMADOL. OBJECTIVE: GENERAL: The patient is alert, oriented, not in acute distress. VITAL SIGNS: Afebrile, has a temperature of 98.1 degrees Fahrenheit, heart rate of 90 per minute, respiratory rate of 18 per minute, saturation of 97% on 2 L of oxygen. Blood pressure 127/69 mmHg. Has an airway which is clear. HEENT: Atraumatic, normocephalic. NECK: Supple. No bruit. No lymphadenopathy. CV: S1, S2. No abnormal rhythms or murmurs. CHEST: Bilateral air entry present. No rhonchi. No wheeze. ABDOMEN: Soft, nontender. Bowel sounds are present. No organomegaly. EXTREMITIES: No cyanosis. The patient has two drains from her right hip area. No edema. NEUROLOGIC: The patient is alert, oriented x3. No focal motor or sensory deficits noted. HEME: No ecchymosis or petechiae. PSYCH: No depression or anxiety. DIAGNOSTICS: WBC is 18,000, hemoglobin 8.5, hematocrit 26.4, platelets are 290. Sodium 138, potassium 3.4, chloride 109, carbon dioxide 19, creatinine 1.61. AST 23, ALT 10. Blood cultures and wound culture and sensitivity evaluation show evidence of methicillin-sensitive Staphylococcus aureus. MEDICATIONS: 1. Zofran 4 mg IV q.6 p.r.n. pain. 2. Tylenol 650 mg q.4 p.r.n. pain. 3. Lisinopril 40 mg daily. 4. Lovenox 40 mg daily. 5. Rifampin 600 mg daily. 6. Coreg 12.5 mg b.i.d. 7. Cefazolin 2 g three times daily, to be renally adjusted. Pharmacy notified. 8. Rosuvastatin 40 mg daily. 9. Hydralazine p.r.n. 10. Insulin glargine 20 units as scheduled with sliding scale insulin protocol. 11. Pantoprazole 40 mg daily. ASSESSMENT: 1. Sepsis secondary to right hip abscess, status post debridement and irrigation with draining of 600 cc of abscess. Subsequently, the patient had a second review along with drain placement. 2. Gram-positive bacteremia with methicillin-sensitive Staphylococcus aureus. The patient currently on cefazolin and rifampin. 3. Acute renal failure, to be optimized. Continue IV hydration. We will also readjust the patient's antibiotic dosing. 4. Benign essential hypertension, on Coreg and lisinopril. We will hold lisinopril at this point of time and put the patient on hydralazine for blood pressure control. 5. Diabetes mellitus type 2, on long-acting insulin and sliding scale protocol. 6. Hyperlipidemia, on rosuvastatin. 7. Hypokalemia, to supplement. 8. Physical debility, to continue physical therapy and occupational therapy. PLAN: Discussed in detail of the diagnosis, treatment, and followup. Advised the patient about continuation of antibiotics for an 8-week course. Continue PT, OT, eventual recommendations awaiting for possible discharge plan to assisted facility versus inpatient rehabilitation. Continue DVT prophylaxis and GI prophylaxis. We will discuss with pharmacy in regard to renally adjusting the patient's cefazolin dosing. Job ID: [id number]
[2020-02-20] MEDS: Acetaminophen 325 MG TAB PO PRN (20:14)
[2020-02-20] MEDS: Rosuvastatin 20 MG TAB PO SCH (20:14)
[2020-02-20] MEDS: Insulin Glargine 20 UNITS in Pre-Filled Syringe 1 EACH SC SCH (20:17)
[2020-02-21] MEDS: HYDROcodone/Acetaminophen 10/325 mg Tablet PO PRN ×4 (02:25→20:51)
[2020-02-21] MEDS: hydrALAZINE 20 MG/ML VIAL SLOW IVP PRN ×2 (03:53→16:24)
[2020-02-21 04:42] LABS: ALT (SGPT) 8 U/L (8-55); AST (SGOT) 22 U/L (5-34); Albumin 2.2 g/dL (3.4-4.8); Alkaline Phosphatase 179 U/L (40-110); Anion Gap 15 mmol/L (10-20); BUN (Urea Nitrogen) 12 mg/dL (9.8-20.1); Bilirubin, Total 0.9 mg/dL (0.2-1.2); Calc. Creatinine Clearance 79 mL/min (70-130); Calcium 8.1 mg/dL (7.8-10.44); Carbon Dioxide 16 mmol/L (23-31); Chloride 109 mmol/L (98-107); Globulin 4.2 g/dL (2.4-3.5); Glucose 117 mg/dL (80-115); Potassium 3.6 mmol/L (3.5-5.1); Protein, Total 6.4 g/dL (6.0-8.3); Sodium 136 mmol/L (136-145)
[2020-02-21 05:23] LABS: Band 9 % (5-11); Eosinophils 1 % (0-10); Hemoglobin 8.3 g/dL (12.0-16.0); Lymphocytes 7 % (21-51); MDiff Complete? YES; Mean Corpuscular HGB CONC 31.5 g/dL (32.0-36.0); Mean Corpuscular Hemoglobin 29.3 pg (27.0-31.0); Mean Platelet Volume 7.6 fL (7.4-10.4); Monocytes 3 % (0-10); Neutrophil 80 % (42-75); Platelet Count 298 thou/uL (130-400); RBC Distribution Width 14.1 % (11.5-14.5); Red Blood Cell (RBC) Count 2.82 mill/uL (4.20-5.40); White Blood Cell (WBC) Count 16.7 thou/uL (4.8-10.8)
[2020-02-21] MEDS: Enoxaparin Sodium 40 MG/0.4 ML SYRINGE SC SCH (08:36)
[2020-02-21] MEDS: Lisinopril 20 MG TAB PO SCH (08:36)
[2020-02-21] MEDS: Carvedilol 6.25 MG TAB PO SCH ×2 (08:36→20:51)
[2020-02-21] MEDS: Rifampin 300 MG CAP PO SCH (12:07)
[2020-02-21] MEDS: CEFAZOLIN 2 GM in Premix Bag 1 BAG IVPB SCH ×2 (13:18→23:21)
[2020-02-21] MEDS: Sodium Chloride 0.9% 1,000 ML IV SCH ×2 (13:19→23:21)
--- NOTE | 2020-02-21 15:34 | PDOC.HOSPP ---
- Subjective Encounter Date: 02/21/20 Encounter Time: 12:00 Subjective: Patient was seen and examined in bed. She has ongoing pain in her right thigh otherwise has no new complaints. She denies any chest pain or shortness of breath or cough. - Objective Vital Signs & Weight: Vital Signs (12 hours) Temp Pulse Resp BP BP Pulse Ox 02/21/20 12:00 98.1 F 95 20 145/71 H 97 02/21/20 08:36 127/69 02/21/20 08:00 98.7 F 96 21 H 186/79 H 98 02/21/20 07:51 95 02/21/20 05:45 89 160/69 H 02/21/20 05:00 95 02/21/20 03:33 99.7 F H 94 18 180/77 H 95 Weight Weight 286 lb 12.8 oz I&O: 02/20/20 02/21/20 02/22/20 06:59 06:59 06:59 Intake Total 480 1680 Output Total 1580 2045 Balance -1100 -365 Result Diagrams: 02/21/20 04:04 02/21/20 04:04 Additional Labs: Accuchecks 02/21/20 02/21/20 02/20/20 11:26 05:56 23:40 POC Glucose 144 H 106 H 76 02/20/20 18:00 POC Glucose 94 Hospitalist ROS - Medication Medications: Active Medications Generic Name Dose Route Start Last Admin Trade Name Freq PRN Reason Stop Dose Admin Acetaminophen 650 mg 02/16/20 01:09 02/20/20 20:14 Acetaminophen 325 Mg Tab PO 650 mg Q4H PRN Administration Headache/Fever/Mild Pain (1-3) Hydrocodone Bitart/Acetaminophen 2 tab 02/16/20 19:09 02/21/20 13:18 Hydrocodone/Acetaminophen 10/325 Mg Tablet PO 2 tab Q4H PRN Administration Severe Pain (7-10) Hydrocodone Bitart/Acetaminophen 1 tab 02/16/20 19:09 02/20/20 07:23 Hydrocodone/Acetaminophen 10/325 Mg Tablet PO 1 tab Q4H PRN Administration Moderate Pain (4-6) Carvedilol 12.5 mg 02/16/20 21:00 02/21/20 08:36 Carvedilol 6.25 Mg Tab PO 12.5 mg BID JANNA Administration Enoxaparin Sodium 40 mg 02/16/20 09:00 02/21/20 08:36 Enoxaparin Sodium 40 Mg/0.4 Ml Syringe SC 40 mg 0900 JANNA Administration Fentanyl 50 mcg 02/16/20 19:09 02/19/20 05:42 Fentanyl 100 Mcg/2 Ml Vial SLOW IVP 50 mcg Q30MIN PRN Administration Breakthrough Pain Hydralazine HCl 10 mg 02/16/20 01:25 02/21/20 03:53 Hydralazine 20 Mg/Ml Vial SLOW IVP 10 mg Q4H PRN Administration Hypertension Sodium Chloride 1,000 mls @ 100 mls/hr 02/16/20 01:15 02/21/20 13:19 Normal Saline 0.9% IV 1,000 mls .Q10H JANNA Administration Insulin Glargine 20 units/ 0.2 mls @ 0 mls/hr 02/16/20 21:00 02/20/20 20:17 Miscellaneous Medication SC Not Given HS JANNA Cefazolin Sodium/Dextrose 2 gm 50 mls @ 100 mls/hr 02/19/20 23:59 02/21/20 13:18 / Device IVPB 50 mls 1200,2359 JANNA Administration Insulin Human Lispro 0 units 02/16/20 01:24 02/19/20 11:40 Humalog 300 Units/3 Ml Vial SC 2 unit .MODERATE SLIDING SC PRN Administration Moderate Correctional Scale Lisinopril 40 mg 02/17/20 09:00 02/21/20 08:36 Lisinopril 20 Mg Tab PO 40 mg DAILY JANNA Administration Pantoprazole Sodium 40 mg 02/17/20 09:00 02/21/20 08:36 Pantoprazole 40 Mg Tab PO 40 mg DAILY JANNA Administration Rifampin 600 mg 02/18/20 11:00 02/21/20 12:07 Rifampin 300 Mg Cap PO 600 mg 1100 JANNA Administration Rosuvastatin Calcium 40 mg 02/16/20 21:00 02/20/20 20:14 Rosuvastatin 20 Mg Tab PO 40 mg HS JANNA Administration - Exam General Appearance: awake alert ENT: normocephalic atraumatic, moist mucosa Heart: RRR, no murmur, no gallops, no rubs Respiratory: CTAB, no wheezes, no rales, no ronchi Gastrointestinal: soft, non-tender, non-distended, normal bowel sounds Extremities: no clubbing, 1+ LE edema Extremities - other findings: Right thigh wound dressed. Neurological: cranial nerve grossly intact, no focal deficits Psychiatric: normal affect, normal behavior, A&O x 3 Hosp A/P - Plan This is a 69-year-old female patient with a history of diabetes mellitus, hypertension who is an admission on account of sepsis secondary to left thigh wound. She is currently post incision drainage and debridement and currently on IV antibiotics. She [facility] be [facility] once she is medically stablelikely tomorrow. Sepsis secondary to right thigh infection. Blood grew MSSA Continue on cefazolin IV Repeat cultures no growth in 24 hourswe will continue monitoring. Continue wound management ID following. MSSA bacteremia Continue cefazolin Await repeat cultures. Diabetes mellitus Blood sugar control Continue correctional insulin. Hypertension Blood pressure is fair Continue antihypertensives Continue blood pressure monitoring. VT prophylaxisenoxaparin CODE STATUSfull code DispositionSNF
[2020-02-21] MEDS: Acetaminophen 325 MG TAB PO PRN (20:50)
[2020-02-21] MEDS: Rosuvastatin 20 MG TAB PO SCH (20:51)
[2020-02-21] MEDS: Insulin Glargine 20 UNITS in Pre-Filled Syringe 1 EACH SC SCH (20:54)
[2020-02-22] MEDS: HYDROcodone/Acetaminophen 10/325 mg Tablet PO PRN ×2 (05:45→11:34)
[2020-02-22 08:45] LABS: Anion Gap 14 mmol/L (10-20); BUN (Urea Nitrogen) 10 mg/dL (9.8-20.1); Calc. Creatinine Clearance 88 mL/min (70-130); Calcium 8.1 mg/dL (7.8-10.44); Carbon Dioxide 21 mmol/L (23-31); Chloride 108 mmol/L (98-107); Glucose 155 mg/dL (80-115); Potassium 3.2 mmol/L (3.5-5.1); Sodium 140 mmol/L (136-145)
[2020-02-22] MEDS: Carvedilol 6.25 MG TAB PO SCH (08:46)
[2020-02-22] MEDS: Lisinopril 20 MG TAB PO SCH (08:47)
[2020-02-22] MEDS: Enoxaparin Sodium 40 MG/0.4 ML SYRINGE SC SCH (08:47)
[2020-02-22 09:41] LABS: Band 4 % (5-11); Eosinophils 1 % (0-10); Hemoglobin 8.1 g/dL (12.0-16.0); Hypochromia SLIGHT = 6-15 cells (100X) (0-5/hpf); Lymphocytes 7 % (21-51); MDiff Complete? YES; Mean Corpuscular HGB CONC 32.4 g/dL (32.0-36.0); Mean Corpuscular Hemoglobin 29.9 pg (27.0-31.0); Mean Corpuscular Volume 92.3 fL (78.0-98.0); Mean Platelet Volume 8.1 fL (7.4-10.4); Monocytes 7 % (0-10); Neutrophil 81 % (42-75); Platelet Count 304 thou/uL (130-400); Platelet Morphology Comment Appears Adequate; RBC Distribution Width 13.8 % (11.5-14.5); Red Blood Cell (RBC) Count 2.71 mill/uL (4.20-5.40); White Blood Cell (WBC) Count 16.4 thou/uL (4.8-10.8)
[2020-02-22] MEDS: Sodium Chloride 0.9% 1,000 ML IV SCH (10:42)
[2020-02-22 11:31] VITALS: TEMP 98.7
[2020-02-22] MEDS: CEFAZOLIN 2 GM in Premix Bag 1 BAG IVPB SCH (11:32)
[2020-02-22] MEDS: Rifampin 300 MG CAP PO SCH (11:32)
[2020-02-22] MEDS ORDERED: Potassium Chloride 20 MEQ TAB PO SCH (13:45)
[2020-02-22 15:44] VITALS: BP 175/77
--- NOTE | 2020-02-24 08:41 | PQF ---
CLINICAL DOCUMENTATION CLARIFICATION FORM: Dear : Cesar Sutton Date / Time: 02/24/2020 Please exercise your independent, professional judgment in responding to the clarification form. Clinical indicators are provided on the bottom of this form for your review Kindly clarify regarding type and depth of debridement procedures done on 02/16/2020 and 02/18/2020 Please check appropriate box(es): [ ] Excisional Debridement: [x ] Excised [ ] Cut away [ ] Other: Depth / layer: (deepest layer of debridement): [ ] Skin [ ] Subcutaneous [ ] Fascia [ ] Muscle [ ] Tendon [x ] Bone [ ] Non-excisional Debridement: (Removal by ?ushing, brushing, chemical, or washing) Depth / layer: (deepest layer of debridement): [ ] Skin [ ] Subcutaneous [ ] Fascia [ ] Muscle [ ] Tendon [ ] Bone [ ] Incision and Drainage only (No Debridement): Depth: [ ] Skin [ ] Subcutaneous [ ] Fascia [ ] Muscle [ ] Tendon [ x ] Bone [ ] Other procedure diagnosis [ ] Unable to determine To be completed by CDI/Coding staff for physician review: Present Clinical Indicators - Signs / Symptoms / Labs Results and Location in Medical Record [ x ] Procedure Performed: Irrigation and debridement of abscess of right hip and thigh OP report 02/15 by Cesar Mitchell [ x ] Fatty layer was sharply incised and then beyond the iliotibial band, purulent drainage was encountered and evacuated and at least 600 mL of abscess fluid was obtained OP report 02/15 by Cesar Mitchell [ x ] Fluid was also sent for culture and sensitivity, Gram stain and cell count OP report 02/15 by Cesar Mitchell [ x ] The wound was then irrigated with antibiotic solution with Pulsavac, followed by irrigation with Betadine, this was then irrigated out. There was no necrotic tissue OP report 02/15 by Cesar Mitchell [ x ] Procedure Performed: Irrigation and debridement of right hip and thigh with closure of wound over 2 large drains OP report 02/17 by Cesar Mitchell [ x ] There were small areas of some necrotic tissue, but the majority of it had good health tissue with some early granulation tissue. Wound was irrigated initially with antibiotic solution using the high-speed roller varnisher. Two drains were placed, one below the iliotibial band, one above it OP report 02/17 by Cesar Mitchell [ x ] The wound was then closed using #2 Vicryl for the iliotibial band., 0 Vicryl for the fat and subcutaneous tissue and skin was closed with skin stales. OP report 02/17 by Cesar Mitchell Present Risk Factors Results and Location in Medical Record [ x ] Postoperative wound abscess, sepsis secondary to wound abscess, recent hip replacement surgery H and P Present Treatments Results and Location in Medical Record [ ] [ ] [ ] [ ] CDS/Wire Cutter Signature: [id number] Phone #: Date/Time: 02/24/2020 This is a permanent part of the Medical Record [facility]
--- NOTE | 2020-02-24 20:43 | PDOC.DS.DS ---
Provider - Provider Date of Admission: 02/15/20 23:44 Date of Discharge: 02/22/20 Admitting Provider: Jesús Byers Primary Care Physician: Enriqueta Sauer MD Course - Hospital Course Hospital Course: This is a 69-year-old female patient with a history of hypertension, diabetes and CKD who was admitted on 02/16/2020 on account of progressive pain in the region of the right hip and upper thigh. Evaluation noted abscess in the proximal right thigh for which she had irrigation and debridement. Orthopedic surgery was in consult. She also had sepsis with blood and wound fluid growing Staph aureusMSSA. She was treated on cefazolin for MSSA coverage with ID in consult. She remained relatively stable. She was discharged to complete long-term IV medication rehab. A PICC line was placed prior to discharge Resuscitation Status: 02/16/20 01:09 Resuscitation Status Routine Resuscitation Status: FULL: Full Resuscitation - Labs Lab Results: 02/22/20 07:35 02/22/20 07:35 Microbiology - Entire Visit 02/20/20 04:27 Venous blood - Right Hand Blood Culture - Preliminary NO GROWTH AT 48 HOURS 02/20/20 04:27 Venous blood - Left Hand Blood Culture - Preliminary NO GROWTH AT 48 HOURS 02/20/20 10:59 Venous blood - Left Hand Blood Culture - Preliminary NO GROWTH AT 48 HOURS 02/20/20 10:59 Venous blood - Right Hand Blood Culture - Preliminary NO GROWTH AT 48 HOURS 02/16/20 18:32 Hip - Fluid Bacterial Culture - Final Staphylococcus aureus 02/16/20 18:32 Hip - Fluid Anaerobic Culture - Final 02/16/20 18:33 Hip - Fluid Bacterial Culture - Final Staphylococcus aureus 02/16/20 18:33 Hip - Fluid Anaerobic Culture - Final 02/15/20 19:44 Venous blood - Right Arm Blood Culture - Final Staphylococcus aureus 02/15/20 19:44 Venous blood - Left Arm Blood Culture - Final Staphylococcus aureus 02/15/20 19:30 Urine voided Urine Culture - Final - Physical Exam Vitals: Weight Weight 286 lb 11.2 oz Physical Exam: The patient was seen and examined on the day of discharge. General: Severely obese, in bed in no acute distress. CVS: S1-S2 present. No murmurs gallops or rubs. Respiratory system: Air entry adequate bilaterally. Abdomen: Soft nontender nondistended bowel sounds present. Extremities: Right lateral proximal hip wound dressed. No edema or cyanosis noted Problem - Discharge Plan Assessment: Sepsis secondary to right upper hip abscess Bacteremia with MSSA Managed on IV fluids and antibiotics. Right proximal thigh abscess Status post irrigation and drainage We will continue cefazolin SNF. Diabetes mellitus Continue insulin treatment Hypertension Continue home medications Plan - Discharge Medications Home Medications: Medication Instructions Recorded Confirmed Type Gabapentin 300 mg PO TID 12/05/16 02/21/20 History Carvedilol 25 mg PO BID 08/01/17 02/21/20 History Acetaminophen/Diphenhydramine 2 tab PO HS PRN 08/17/19 02/21/20 History [Pain Relief Pm Caplet] Lisinopril 40 mg PO DAILY 08/17/19 02/21/20 History Rosuvastatin [Crestor] 40 mg PO DAILY 08/17/19 02/21/20 History Acetaminophen With Codeine 1 tab PO Q6HR PRN 12/07/19 02/21/20 History [Acetaminophen/Codeine #4] Benzonatate 100 mg PO TID 12/07/19 02/21/20 History Cyclobenzaprine [Flexeril] 10 mg PO TID PRN 12/07/19 02/21/20 History Insulin Lispro [Humalog Kwikpen 1 unit SQ TID-WM 12/07/19 02/21/20 History U-100] Ondansetron [Zofran ODT] 4 mg PO DAILY PRN 12/07/19 02/21/20 History Pantoprazole [Protonix] 40 mg PO DAILY 12/07/19 02/21/20 History Acetaminophen [Tylenol Regular 650 mg PO Q4H PRN tab 02/22/20 Rx Strength] Acetaminophen [Tylenol Suppository] 650 mg OK Q4H PRN supp 02/22/20 Rx Calcium Carbonate [Tums] 1,000 mg PO Q4H PRN tab 02/22/20 Rx Cefazolin [Ancef] 2 gm IVPB 1200,2359 bag 02/22/20 Rx Dextrose 50% 25 gm SLOW IVP PRN PRN syringe 02/22/20 Rx Enoxaparin Sodium [Lovenox] 40 mg SC 0900 syringe 02/22/20 Rx Glucagon 1 mg IM PRN PRN vial 02/22/20 Rx HYDROcodone Bit/APAP 10/325 [[place]] 1 tab PO Q4H PRN tab 02/22/20 Rx HYDROcodone Bit/APAP 10/325 [[place]] 2 tab PO Q4H PRN tab 02/22/20 Rx Insulin Glargine [Lantus Vial] 20 units SC HS vial 02/22/20 Rx Ondansetron HCl/PF [Zofran] 4 mg IVP Q6H PRN vial 02/22/20 Rx Ondansetron [Zofran ODT] 4 mg PO Q6H PRN tab 02/22/20 Rx Rifampin [Rifadin] 600 mg PO 1100 cap 02/22/20 Rx hydrALAZINE [Apresoline] 10 mg SLOW IVP Q4H PRN vial 02/22/20 Rx Allergies: silver [From Tegaderm AG Mesh] Allergy (Intermediate, Verified 02/18/20 05:27) blisters chlorhexidine Allergy (Verified 02/17/20 05:02) Rash ONLY THE WIPES CAUSED REACTION morphine Allergy (Verified 02/17/20 05:02) RASH, ITCHING Penicillins Allergy (Verified 02/17/20 05:02) Hives tramadol Allergy (Verified 02/17/20 05:02) HALLUCINATIONS - Discharge Instructions Activity:: Activity as Tolerated Nourishment:: Diabetic Diet - Follow up Plan [facility] [Other] (Inpatient rehab admit.) Enriqueta Sauer MD [Primary Care Provider] - (FOLLOW UP AFTER REHAB) Misael Ann MD [Active] - (CALL FOR ANY QUESTIONS) Kaylee Brown MD [Active] - ([facility] Cesar Sutton MD [Active] - (CALL FOR ANY QUESTIONS) Disposition: [facility] FACILITY Quality - Care Measures CORE MEASURES:: N/A
== END 2020-02-22 16:30 | DRG 856 ==
LOC: ERS 16:45 → ERHOLD 23:44 → 2NO 02-16 16:53 → SURG A 02-18 12:24 → SJJU 02-18 15:02 → 2NO 02-18 21:05
PROVIDERS: ADMIT Internal Medicine; ATTEND Internal Medicine
PROC: 0QB60ZZ Excision of Right Upper Femur, Open Approach (ICD-10-PCS; principal; 2020-02-16)
PROC: 0Q960ZZ Drainage of Right Upper Femur, Open Approach (ICD-10-PCS; 2020-02-16)
PROC: 0QB60ZZ Excision of Right Upper Femur, Open Approach (ICD-10-PCS; 2020-02-18)
PROC: 0Q960ZZ Drainage of Right Upper Femur, Open Approach (ICD-10-PCS; 2020-02-18)
PROC: 02HV33Z Insertion of Infusion Device into Superior Vena Cava, Percutaneous Approach (ICD-10-PCS; 2020-02-19)
PROC: B548ZZA Ultrasonography of Superior Vena Cava, Guidance (ICD-10-PCS; 2020-02-19)
PROC: B5181ZA Fluoroscopy of Superior Vena Cava using Low Osmolar Contrast, Guidance (ICD-10-PCS; 2020-02-19)
DX: T81.49XA Infection following a procedure, other surgical site, initial encounter (principal); A41.01 Sepsis due to Methicillin susceptible Staphylococcus aureus; L02.415 Cutaneous abscess of right lower limb; N17.9 Acute kidney failure, unspecified; N18.4 Chronic kidney disease, stage 4 (severe); E87.1 Hypo-osmolality and hyponatremia; Z68.43 Body mass index [BMI] 50.0-59.9, adult; Z20.828 Contact with and (suspected) exposure to other viral communicable diseases; T81.44XA Sepsis following a procedure, initial encounter; E78.5 Hyperlipidemia, unspecified; E66.9 Obesity, unspecified; I12.9 Hypertensive chronic kidney disease with stage 1 through stage 4 chronic kidney disease, or unspecified chronic kidney disease; E11.22 Type 2 diabetes mellitus with diabetic chronic kidney disease; Z96.643 Presence of artificial hip joint, bilateral; Z96.659 Presence of unspecified artificial knee joint; Y83.8 Other surgical procedures as the cause of abnormal reaction of the patient, or of later complication, without mention of misadventure at the time of the procedure; R53.81 Other malaise; E87.6 Hypokalemia; Z90.49 Acquired absence of other specified parts of digestive tract; Z90.710 Acquired absence of both cervix and uterus; Z88.0 Allergy status to penicillin; Z88.8 Allergy status to other drugs, medicaments and biological substances; Z91.09 Other allergy status, other than to drugs and biological substances
CPT/HCPCS: 36415; 36416; 36569; 51701; 72157; 72158; 74176; 80048; 80053; 80202; 81003; 81015; 83605; 83690; 85007; 85025; 85027; 85652; 86140; 87040; 87070; 87077; 87086; 87149; 87186; 87205; 87635; 93005; 93306; 96365; 96366; 96367; A9579; C1751; J0360; J0690; J0692; J1170; J1644; J1650; J1815; J2270; J2405; J2704; J3010; J3370; J3490; J7030; U0003

== ENCOUNTER 2020-09-05 06:08 | Inpatient (IN) | payer MEDICARE, MEDICAID ==
[2020-09-05] MEDS ORDERED: Acetaminophen 500 MG TAB ONE (07:03)
[2020-09-05 07:24] LABS: Hemoglobin 11.5 g/dL (12.0-16.0); Mean Corpuscular HGB CONC 33.3 g/dL (32.0-36.0); Mean Corpuscular Hemoglobin 30.5 pg (27.0-31.0); Mean Corpuscular Volume 91.7 fL (78.0-98.0); Mean Platelet Volume 8.7 fL (7.4-10.4); Platelet Count 176 thou/uL (130-400); RBC Distribution Width 13.2 % (11.5-14.5); Red Blood Cell (RBC) Count 3.78 mill/uL (4.20-5.40); White Blood Cell (WBC) Count 24.3 thou/uL (4.8-10.8)
[2020-09-05 07:34] LABS: Bilirubin Negative (Negative); Blood, Urine 1+ (Negative); Clarity Clear (Clear); Glucose, Urine (Dipstick) Normal (Negative); Ketone, Urine Negative (Negative); Leukocyte Negative Leu/uL (Negative); Nitrite Negative (Negative); Protein, Urine (Dipstick) 200 mg/dL (Neg-Trace); Specific Gravity, Urine 1.015 (1.002-1.036); Squamous Epithelial 0-3 HPF (0-3); Urobilinogen Normal mg/dL (Less than 2)
[2020-09-05 07:35] LABS: Band 11 % (5-11); Lymphocytes 9 % (21-51); MDiff Complete? YES; Monocytes 2 % (0-10); Neutrophil 78 % (42-75); Platelet Morphology Comment Appears Adequate
[2020-09-05 07:35] LABS: Bacteria/HPF 1+ HPF (None Seen)
[2020-09-05 07:38] LABS: ALT (SGPT) 21 U/L (8-55); AST (SGOT) 14 U/L (5-34); Albumin 3.6 g/dL (3.4-4.8); Alkaline Phosphatase 144 U/L (40-110); Anion Gap 15 mmol/L (10-20); BUN (Urea Nitrogen) 23 mg/dL (9.8-20.1); Bilirubin, Total 0.4 mg/dL (0.2-1.2); Calc. Creatinine Clearance 0 mL/min (70-130); Calcium 9.4 mg/dL (7.8-10.44); Carbon Dioxide 16 mmol/L (23-31); Chloride 106 mmol/L (98-107); Globulin 4.1 g/dL (2.4-3.5); Glucose 300 mg/dL (80-115); Potassium 3.9 mmol/L (3.5-5.1); Protein, Total 7.7 g/dL (5.8-8.1); Sodium 133 mmol/L (136-145)
[2020-09-05] MEDS ORDERED: Vancomycin 1 GM/200 ML BAG ONE (08:41)
[2020-09-05 09:03] LABS: SARS-CoV-2 NAA Rapid Test Not Detected (NotDetected)
[2020-09-05 11:16] VITALS: BMI 48.3
[2020-09-05] MEDS ORDERED: Fentanyl 100 MCG/2 ML VIAL SLOW IVP PRN (11:46)
[2020-09-05] MEDS ORDERED: Loratadine 10 MG TAB PO PRN (11:53)
[2020-09-05] MEDS ORDERED: Fentanyl 100 MCG/2 ML VIAL ONE (12:12)
[2020-09-05] MEDS ORDERED: Acetaminophen 325 MG TAB ONE (12:12)
[2020-09-05] MEDS: Acetaminophen 325 MG TAB PO PRN ×2 (12:18→22:31)
[2020-09-05] MEDS: Sodium Chloride 0.9% 1,000 ML IV SCH ×2 (12:24→22:50)
[2020-09-05] MEDS ORDERED: CEFAZOLIN 2 GM in Premix Bag 1 BAG IVPB SCH (15:45)
[2020-09-05 15:56] LABS: Synovial Fluid, Protein 4.6 g/dL (Not Available)
[2020-09-05 16:29] LABS: RBC Count-Automated (BF) 59166 /cu.mm
[2020-09-05 16:31] LABS: Body Fluid Source Synovial Fluid; Clarity Cloudy/Turbid (Clear); Tube # 2; WBC/Nucleated-Auto (BF) Greater than 51000 uL
[2020-09-05 16:32] LABS: BF Color Brown
[2020-09-05 17:20] LABS: Eosinophils 4 %
[2020-09-05 17:21] LABS: Cell Count Non Hematic 10 %
[2020-09-05 17:22] LABS: BF Segmented Neutrophils 86 %
[2020-09-05] MEDS ORDERED: Melatonin 3 MG TAB PO PRN (19:48)
[2020-09-05] MEDS: ceFAZolin 1 GM/D5W 1 GM in Premix Bag 1 BAG IVPB SCH (22:50)
[2020-09-06] MEDS: Acetaminophen 325 MG TAB PO PRN (03:19)
[2020-09-06] MEDS ORDERED: Carvedilol 25 MG TAB PO SCH (06:00)
[2020-09-06] MEDS ORDERED: Fentanyl 100 MCG/2 ML VIAL ONE ×6 (08:01→15:02)
[2020-09-06] MEDS ORDERED: Midazolam HCl 2 mg/2 ml Vial ONE (08:01)
[2020-09-06] MEDS ORDERED: Tobramycin Sulfate 1.2 GM VIAL ONE (08:03)
[2020-09-06] MEDS ORDERED: Vancomycin 1 GM/200 ML BAG ONE (08:39)
[2020-09-06] MEDS ORDERED: Vancomycin HCl 1 GM in Premix Bag 1 BAG IVPB SCH (09:00)
[2020-09-06] MEDS ORDERED: Glycopyrrolate 0.2 MG/ML 5 ML SYRINGE ONE (09:06)
[2020-09-06] MEDS ORDERED: Rocuronium Bromide 10 MG/ML (10ML VIAL) ONE (09:06)
[2020-09-06] MEDS ORDERED: PHENYLEPHRINE-NS 100 MCG/ML 10 ML SYRINGE ONE (09:06)
[2020-09-06] MEDS ORDERED: Ondansetron PF 4 MG/2 ML Vial ONE (09:06)
[2020-09-06] MEDS ORDERED: PROPOFOL 200 MG/20 ML VIAL ONE (09:06)
[2020-09-06] MEDS ORDERED: Ondansetron HCl/PF 4 MG/2 ML Vial IVP PRN (13:29)
[2020-09-06] MEDS ORDERED: Promethazine HCl 25 MG/ML VIAL IM PRN ×2 (13:29→13:30)
[2020-09-06] MEDS ORDERED: Promethazine HCl 25 MG/ML VIAL SLOW IVP PRN (13:29)
[2020-09-06] MEDS ORDERED: diphenhydrAMINE 50 MG/ML VIAL IM PRN (13:30)
[2020-09-06] MEDS ORDERED: Zolpidem Tartrate 5 MG TAB PO PRN (13:30)
[2020-09-06] MEDS ORDERED: Communication Order-Pharmacy FS SCH (13:30)
[2020-09-06] MEDS ORDERED: Ondansetron PF 4 MG/2 ML Vial IVP PRN (13:30)
[2020-09-06] MEDS ORDERED: diphenhydrAMINE 50 MG/ML VIAL IVP PRN (13:30)
[2020-09-06] MEDS ORDERED: Naloxone HCl 0.4 mg/ml Vial IV PRN (13:30)
[2020-09-06 16:39] LABS: Anion Gap 14 mmol/L (10-20); BUN (Urea Nitrogen) 15 mg/dL (9.8-20.1); Calc. Creatinine Clearance 58 mL/min (70-130); Calcium 8.3 mg/dL (7.8-10.44); Carbon Dioxide 17 mmol/L (23-31); Chloride 109 mmol/L (98-107); Glucose 344 mg/dL (80-115); Potassium 4.1 mmol/L (3.5-5.1); Sodium 136 mmol/L (136-145)
[2020-09-06 17:02] LABS: CRP (Inflammatory) 36.77 mg/dL (= or < 0.5)
[2020-09-06] MEDS: Sodium Chloride 0.9% 1,000 ML IV SCH ×2 (17:14)
[2020-09-06] MEDS: Vancomycin 1 GM in Premix Bag 1 BAG IVPB SCH (17:15)
[2020-09-06] MEDS: ceFAZolin 1 GM/D5W 1 GM in Premix Bag 1 BAG IVPB SCH ×2 (17:15→21:04)
[2020-09-06 17:23] LABS: Band 14 % (5-11); Hemoglobin 10.8 g/dL (12.0-16.0); Lymphocytes 9 % (21-51); MDiff Complete? YES; Mean Corpuscular HGB CONC 32.4 g/dL (32.0-36.0); Mean Corpuscular Hemoglobin 29.8 pg (27.0-31.0); Mean Corpuscular Volume 92.1 fL (78.0-98.0); Mean Platelet Volume 8.4 fL (7.4-10.4); Monocytes 8 % (0-10); Neutrophil 69 % (42-75); Platelet Count 168 thou/uL (130-400); Platelet Morphology Comment Appears Adequate; RBC Distribution Width 13.5 % (11.5-14.5); RBC Morphology Normal; Red Blood Cell (RBC) Count 3.64 mill/uL (4.20-5.40); White Blood Cell (WBC) Count 20.5 thou/uL (4.8-10.8)
[2020-09-06] MEDS ORDERED: Dextrose 5% in Water 1,000 ML IV PRN (17:49)
[2020-09-06] MEDS ORDERED: Dextrose 50% Abboject 50 ML SYRINGE SLOW IVP PRN (17:49)
[2020-09-06] MEDS ORDERED: Lantus 1000 UNITS/10 ML VIAL SC SCH (18:00)
[2020-09-06] MEDS ORDERED: hydrALAZINE 20 MG/ML VIAL SLOW IVP PRN (18:10)
[2020-09-06] MEDS: Insulin Regular 300 UNITS/3 ML VIAL SC PRN ×2 (18:13→21:02)
[2020-09-07] MEDS: Sodium Chloride 0.9% 1,000 ML IV SCH ×3 (04:31→21:51)
[2020-09-07] MEDS: Insulin Regular 300 UNITS/3 ML VIAL SC PRN ×3 (06:07→21:51)
[2020-09-07 06:08] LABS: #Eosinphils 0.1 thou/uL (0.0-0.7); #Lymphocytes 1.8 thou/uL (1.20-3.40); #Monocytes 1.8 thou/uL (0.11-0.59); #Neutrophils 12.4 thou/uL (1.40-6.50); %Basophils 0.1 % (0.0-1.0); %Eosinophils 0.8 % (0.0-10.0); %Lymphocytes 11.2 % (21.0-51.0); %Monocytes 11.2 % (0.0-10.0); %Neutrophils 76.8 % (42.0-75.0); Hemoglobin 9.7 g/dL (12.0-16.0); Mean Corpuscular HGB CONC 32.5 g/dL (32.0-36.0); Mean Corpuscular Hemoglobin 29.9 pg (27.0-31.0); Mean Corpuscular Volume 91.8 fL (78.0-98.0); Mean Platelet Volume 7.7 fL (7.4-10.4); Platelet Count 196 thou/uL (130-400); RBC Distribution Width 13.3 % (11.5-14.5); Red Blood Cell (RBC) Count 3.26 mill/uL (4.20-5.40); White Blood Cell (WBC) Count 16.2 thou/uL (4.8-10.8)
[2020-09-07 06:22] LABS: ALT (SGPT) 14 U/L (8-55); AST (SGOT) 28 U/L (5-34); Albumin 2.6 g/dL (3.4-4.8); Alkaline Phosphatase 100 U/L (40-110); Anion Gap 9 mmol/L (10-20); BUN (Urea Nitrogen) 14 mg/dL (9.8-20.1); Bilirubin, Total 0.4 mg/dL (0.2-1.2); Calc. Creatinine Clearance 67 mL/min (70-130); Calcium 7.9 mg/dL (7.8-10.44); Carbon Dioxide 21 mmol/L (23-31); Chloride 107 mmol/L (98-107); Globulin 3.4 g/dL (2.4-3.5); Glucose 285 mg/dL (80-115); Potassium 3.1 mmol/L (3.5-5.1); Sodium 134 mmol/L (136-145)
[2020-09-07] MEDS ORDERED: Lantus 1000 UNITS/10 ML VIAL SC SCH ×2 (09:00)
[2020-09-07] MEDS ORDERED: Insulin Glargine 10 UNITS in Pre-Filled Syringe 1 EACH SC SCH (09:00)
[2020-09-07] MEDS: Potassium Chloride 20 MEQ TAB PO SCH ×2 (09:32→18:02)
[2020-09-07] MEDS: diphenhydrAMINE 25 MG CAP PO PRN (09:32)
[2020-09-07] MEDS: Carvedilol 6.25 MG TAB PO SCH ×2 (09:32→18:02)
[2020-09-07] MEDS: Lantus 1000 UNITS/10 ML VIAL SC SCH (09:33)
[2020-09-07] MEDS: ceFAZolin 1 GM/D5W 1 GM in Premix Bag 1 BAG IVPB SCH (09:33)
[2020-09-07] MEDS: Vancomycin 1 GM in Premix Bag 1 BAG IVPB SCH (17:59)
[2020-09-07] MEDS: fentaNYL Citrate/PF 2,000 MCG in Sodium Chloride 0.9% 60 ML IV PRN (20:01)
[2020-09-07] MEDS: CEFAZOLIN 2 GM in Premix Bag 1 BAG IVPB SCH (21:50)
[2020-09-07] MEDS: Senokot S 8.6-50 MG TAB PO SCH (21:50)
[2020-09-08 06:25] LABS: #Eosinphils 0.4 thou/uL (0.0-0.7); #Lymphocytes 1.9 thou/uL (1.20-3.40); #Monocytes 1.7 thou/uL (0.11-0.59); %Basophils 0.1 % (0.0-1.0); %Eosinophils 2.8 % (0.0-10.0); %Lymphocytes 14.9 % (21.0-51.0); %Neutrophils 69.2 % (42.0-75.0); Hemoglobin 9.6 g/dL (12.0-16.0); Mean Corpuscular HGB CONC 33.3 g/dL (32.0-36.0); Mean Corpuscular Hemoglobin 30.4 pg (27.0-31.0); Mean Corpuscular Volume 91.1 fL (78.0-98.0); Mean Platelet Volume 7.7 fL (7.4-10.4); Platelet Count 194 thou/uL (130-400); RBC Distribution Width 13.4 % (11.5-14.5); Red Blood Cell (RBC) Count 3.16 mill/uL (4.20-5.40)
[2020-09-08] MEDS: Insulin Regular 300 UNITS/3 ML VIAL SC PRN ×4 (06:32→20:25)
[2020-09-08 06:43] LABS: ALT (SGPT) 15 U/L (8-55); AST (SGOT) 26 U/L (5-34); Albumin 2.6 g/dL (3.4-4.8); Alkaline Phosphatase 99 U/L (40-110); Anion Gap 12 mmol/L (10-20); BUN (Urea Nitrogen) 11 mg/dL (9.8-20.1); Bilirubin, Total 0.4 mg/dL (0.2-1.2); Calc. Creatinine Clearance 71 mL/min (70-130); Carbon Dioxide 20 mmol/L (23-31); Chloride 106 mmol/L (98-107); Globulin 3.5 g/dL (2.4-3.5); Glucose 298 mg/dL (80-115); Magnesium 1.6 mg/dL (1.6-2.6); Potassium 3.3 mmol/L (3.5-5.1); Protein, Total 6.1 g/dL (5.8-8.1); Sodium 135 mmol/L (136-145)
[2020-09-08] MEDS: Senokot S 8.6-50 MG TAB PO SCH ×2 (08:56→20:20)
[2020-09-08] MEDS: Polyethylene Glycol 3350 17 GM Packet PO SCH (08:56)
[2020-09-08] MEDS: Saccharomyces boulardii 250 MG CAP PO SCH (08:57)
[2020-09-08] MEDS: Carvedilol 6.25 MG TAB PO SCH ×2 (08:57→16:53)
[2020-09-08] MEDS: CEFAZOLIN 2 GM in Premix Bag 1 BAG IVPB SCH ×2 (08:59→22:20)
[2020-09-08] MEDS: Lantus 1000 UNITS/10 ML VIAL SC SCH ×2 (09:20→20:24)
[2020-09-08] MEDS: diphenhydrAMINE 25 MG CAP PO PRN ×2 (15:03→22:28)
[2020-09-08 16:36] LABS: Vancomycin, Trough 9.9 ug/mL
[2020-09-08] MEDS: Vancomycin 1 GM in Premix Bag 1 BAG IVPB SCH (16:53)
[2020-09-08] MEDS ORDERED: Magnesium 2 GM/50 ML 2 GM in Premix Bag 1 BAG IVPB SCH (18:15)
[2020-09-09] MEDS: fentaNYL Citrate/PF 2,000 MCG in Sodium Chloride 0.9% 60 ML IV PRN (04:34)
[2020-09-09] MEDS: Sodium Chloride 0.9% 1,000 ML IV SCH ×3 (04:36→21:51)
[2020-09-09 05:07] LABS: #Eosinphils 0.4 thou/uL (0.0-0.7); #Lymphocytes 2.2 thou/uL (1.20-3.40); #Monocytes 1.6 thou/uL (0.11-0.59); #Neutrophils 9.2 thou/uL (1.40-6.50); %Basophils 0.1 % (0.0-1.0); %Eosinophils 3.4 % (0.0-10.0); %Lymphocytes 16.3 % (21.0-51.0); %Monocytes 11.6 % (0.0-10.0); %Neutrophils 68.7 % (42.0-75.0); Hemoglobin 9.1 g/dL (12.0-16.0); Mean Corpuscular Hemoglobin 30.3 pg (27.0-31.0); Mean Corpuscular Volume 91.8 fL (78.0-98.0); Mean Platelet Volume 7.6 fL (7.4-10.4); Platelet Count 224 thou/uL (130-400); RBC Distribution Width 13.4 % (11.5-14.5); Red Blood Cell (RBC) Count 2.99 mill/uL (4.20-5.40); White Blood Cell (WBC) Count 13.4 thou/uL (4.8-10.8)
[2020-09-09 05:28] LABS: Anion Gap 13 mmol/L (10-20); BUN (Urea Nitrogen) 10 mg/dL (9.8-20.1); Calc. Creatinine Clearance 86 mL/min (70-130); Calcium 8.3 mg/dL (7.8-10.44); Carbon Dioxide 20 mmol/L (23-31); Chloride 106 mmol/L (98-107); Glucose 156 mg/dL (80-115); Potassium 3.1 mmol/L (3.5-5.1); Sodium 136 mmol/L (136-145)
[2020-09-09] MEDS: Insulin Regular 300 UNITS/3 ML VIAL SC PRN ×4 (06:52→20:41)
[2020-09-09] MEDS ORDERED: Magnesium 2 GM/50 ML 2 GM in Premix Bag 1 BAG IVPB SCH (08:30)
[2020-09-09] MEDS ORDERED: Electrolyte Replacement Protocol 1 EACH FS SCH (08:30)
[2020-09-09] MEDS ORDERED: Potassium Chloride 20 MEQ TAB PO SCH ×2 (08:30→17:00)
[2020-09-09] MEDS: Lantus 1000 UNITS/10 ML VIAL SC SCH ×2 (08:55→20:40)
[2020-09-09] MEDS: Senokot S 8.6-50 MG TAB PO SCH ×2 (08:56→20:40)
[2020-09-09] MEDS: Polyethylene Glycol 3350 17 GM Packet PO SCH (08:57)
[2020-09-09] MEDS: CEFAZOLIN 2 GM in Premix Bag 1 BAG IVPB SCH ×2 (08:57→21:42)
[2020-09-09] MEDS: Saccharomyces boulardii 250 MG CAP PO SCH (08:57)
[2020-09-09] MEDS: Carvedilol 6.25 MG TAB PO SCH ×2 (08:57→16:17)
[2020-09-09] MEDS ORDERED: VANCOMYCIN 1.25 GM/250 ML BAG 1.25 GM in Premix Bag 1 BAG IVPB SCH (17:00)
[2020-09-09] MEDS: Acetaminophen 325 MG TAB PO PRN (20:49)
[2020-09-09] MEDS ORDERED: Polyethylene Glycol 3350 17 GM Packet PO SCH (21:30)
[2020-09-10 05:28] LABS: #Eosinphils 0.5 thou/uL (0.0-0.7); #Monocytes 1.4 thou/uL (0.11-0.59); #Neutrophils 8.9 thou/uL (1.40-6.50); %Eosinophils 3.6 % (0.0-10.0); %Monocytes 10.9 % (0.0-10.0); %Neutrophils 69.5 % (42.0-75.0); Hemoglobin 8.9 g/dL (12.0-16.0); Mean Corpuscular HGB CONC 33.2 g/dL (32.0-36.0); Mean Corpuscular Hemoglobin 30.4 pg (27.0-31.0); Mean Corpuscular Volume 91.6 fL (78.0-98.0); Platelet Count 284 thou/uL (130-400); RBC Distribution Width 13.2 % (11.5-14.5); Red Blood Cell (RBC) Count 2.94 mill/uL (4.20-5.40); White Blood Cell (WBC) Count 12.8 thou/uL (4.8-10.8)
[2020-09-10 06:06] LABS: Anion Gap 13 mmol/L (10-20); BUN (Urea Nitrogen) 9 mg/dL (9.8-20.1); Calc. Creatinine Clearance 84 mL/min (70-130); Calcium 8.5 mg/dL (7.8-10.44); Carbon Dioxide 24 mmol/L (23-31); Chloride 106 mmol/L (98-107); Glucose 152 mg/dL (80-115); Magnesium 2.2 mg/dL (1.6-2.6); Potassium 3.3 mmol/L (3.5-5.1); Sodium 140 mmol/L (136-145)
[2020-09-10] MEDS ORDERED: Electrolyte Replacement Protocol FS PRN (06:45)
[2020-09-10] MEDS ORDERED: Potassium Chloride 20 MEQ TAB PO SCH (08:00)
[2020-09-10] MEDS: Saccharomyces boulardii 250 MG CAP PO SCH (08:58)
[2020-09-10] MEDS: Carvedilol 6.25 MG TAB PO SCH ×2 (08:58→17:57)
[2020-09-10] MEDS: Senokot S 8.6-50 MG TAB PO SCH ×2 (08:59→20:53)
[2020-09-10] MEDS: Polyethylene Glycol 3350 17 GM Packet PO SCH (08:59)
[2020-09-10] MEDS: Lantus 1000 UNITS/10 ML VIAL SC SCH ×2 (09:00→21:01)
[2020-09-10] MEDS: Enoxaparin Sodium 40 MG/0.4 ML SYRINGE SC SCH (11:08)
[2020-09-10] MEDS: CEFAZOLIN 2 GM in Premix Bag 1 BAG IVPB SCH ×2 (11:08→21:05)
[2020-09-10] MEDS: Insulin Regular 300 UNITS/3 ML VIAL SC PRN ×2 (14:41→17:57)
[2020-09-10] MEDS: fentaNYL Citrate/PF 2,000 MCG in Sodium Chloride 0.9% 60 ML IV PRN (14:41)
[2020-09-10 16:37] LABS: Vancomycin, Trough 11.3 ug/mL
[2020-09-10] MEDS: Vancomycin 1.5 GRAM/300 ML BAG 1.5 GM in Premix Bag 1 BAG IVPB SCH (18:04)
[2020-09-10] MEDS: Bisacodyl 10 MG SUPP PR SCH (20:53)
[2020-09-11] MEDS: Sodium Chloride 0.9% 1,000 ML IV SCH ×2 (00:47→22:15)
[2020-09-11] MEDS: Insulin Regular 300 UNITS/3 ML VIAL SC PRN (05:45)
[2020-09-11] MEDS: Carvedilol 6.25 MG TAB PO SCH ×2 (08:10→16:43)
[2020-09-11] MEDS: Saccharomyces boulardii 250 MG CAP PO SCH (08:10)
[2020-09-11] MEDS: Senokot S 8.6-50 MG TAB PO SCH ×2 (08:10→21:04)
[2020-09-11] MEDS: Polyethylene Glycol 3350 17 GM Packet PO SCH (08:10)
[2020-09-11] MEDS: Lantus 1000 UNITS/10 ML VIAL SC SCH ×2 (08:11→21:04)
[2020-09-11] MEDS: Enoxaparin Sodium 40 MG/0.4 ML SYRINGE SC SCH (08:11)
[2020-09-11] MEDS: CEFAZOLIN 2 GM in Premix Bag 1 BAG IVPB SCH ×2 (10:29→22:14)
[2020-09-11] MEDS: Vancomycin 1.5 GRAM/300 ML BAG 1.5 GM in Premix Bag 1 BAG IVPB SCH (16:43)
[2020-09-11] MEDS: Bisacodyl 10 MG SUPP PR SCH (21:05)
[2020-09-12] MEDS: fentaNYL Citrate/PF 2,000 MCG in Sodium Chloride 0.9% 60 ML IV PRN (02:01)
[2020-09-12 05:49] LABS: #Eosinphils 0.4 thou/uL (0.0-0.7); #Lymphocytes 1.9 thou/uL (1.20-3.40); #Neutrophils 7.7 thou/uL (1.40-6.50); %Eosinophils 3.9 % (0.0-10.0); %Lymphocytes 17.3 % (21.0-51.0); %Monocytes 8.8 % (0.0-10.0); Hemoglobin 9.3 g/dL (12.0-16.0); Mean Corpuscular HGB CONC 30.9 g/dL (32.0-36.0); Mean Corpuscular Hemoglobin 28.6 pg (27.0-31.0); Mean Corpuscular Volume 92.6 fL (78.0-98.0); Mean Platelet Volume 6.6 fL (7.4-10.4); Platelet Count 381 thou/uL (130-400); RBC Distribution Width 13.3 % (11.5-14.5); Red Blood Cell (RBC) Count 3.26 mill/uL (4.20-5.40)
[2020-09-12 06:07] LABS: Anion Gap 13 mmol/L (10-20); BUN (Urea Nitrogen) 10 mg/dL (9.8-20.1); Calc. Creatinine Clearance 108 mL/min (70-130); Carbon Dioxide 23 mmol/L (23-31); Chloride 105 mmol/L (98-107); Glucose 74 mg/dL (80-115); Potassium 3.3 mmol/L (3.5-5.1); Sodium 138 mmol/L (136-145)
[2020-09-12] MEDS ORDERED: Potassium Chloride 20 MEQ TAB PO SCH (06:30)
[2020-09-12] MEDS: Lantus 1000 UNITS/10 ML VIAL SC SCH ×2 (08:23→21:21)
[2020-09-12] MEDS: Polyethylene Glycol 3350 17 GM Packet PO SCH (08:23)
[2020-09-12] MEDS: Saccharomyces boulardii 250 MG CAP PO SCH (08:23)
[2020-09-12] MEDS: Senokot S 8.6-50 MG TAB PO SCH ×2 (08:23→21:21)
[2020-09-12] MEDS: Enoxaparin Sodium 40 MG/0.4 ML SYRINGE SC SCH (08:24)
[2020-09-12] MEDS: Carvedilol 6.25 MG TAB PO SCH ×2 (08:24→17:05)
[2020-09-12] MEDS: CEFAZOLIN 2 GM in Premix Bag 1 BAG IVPB SCH ×2 (09:55→22:35)
[2020-09-12] MEDS ORDERED: HYDROcodone/Acetaminophen 5/325 mg Tablet PO PRN (10:29)
[2020-09-12] MEDS: HYDROcodone/Acetaminophen 5/325 mg Tablet PO PRN ×3 (10:43→22:35)
[2020-09-12] MEDS: diphenhydrAMINE 25 MG CAP PO PRN ×2 (10:43→17:03)
[2020-09-12] MEDS: Insulin Regular 300 UNITS/3 ML VIAL SC PRN (12:07)
[2020-09-12 16:50] LABS: Vancomycin, Trough 13.3 ug/mL
[2020-09-12] MEDS: Vancomycin 1.5 GRAM/300 ML BAG 1.5 GM in Premix Bag 1 BAG IVPB SCH (17:05)
[2020-09-12] MEDS: Bisacodyl 10 MG SUPP PR SCH (21:21)
[2020-09-12] MEDS: Sodium Chloride 0.9% 1,000 ML IV SCH (21:22)
[2020-09-13 05:56] LABS: #Eosinphils 0.4 thou/uL (0.0-0.7); #Lymphocytes 1.8 thou/uL (1.20-3.40); #Monocytes 0.8 thou/uL (0.11-0.59); #Neutrophils 5.6 thou/uL (1.40-6.50); %Basophils 0.1 % (0.0-1.0); %Eosinophils 4.2 % (0.0-10.0); %Lymphocytes 20.8 % (21.0-51.0); %Monocytes 8.9 % (0.0-10.0); Hemoglobin 9.5 g/dL (12.0-16.0); Mean Corpuscular HGB CONC 32.9 g/dL (32.0-36.0); Mean Corpuscular Hemoglobin 30.8 pg (27.0-31.0); Mean Corpuscular Volume 93.8 fL (78.0-98.0); Mean Platelet Volume 6.6 fL (7.4-10.4); Platelet Count 421 thou/uL (130-400); RBC Distribution Width 13.3 % (11.5-14.5); Red Blood Cell (RBC) Count 3.08 mill/uL (4.20-5.40); White Blood Cell (WBC) Count 8.6 thou/uL (4.8-10.8)
[2020-09-13 06:12] LABS: Anion Gap 16 mmol/L (10-20); BUN (Urea Nitrogen) 9 mg/dL (9.8-20.1); Calc. Creatinine Clearance 119 mL/min (70-130); Calcium 8.8 mg/dL (7.8-10.44); Carbon Dioxide 22 mmol/L (23-31); Chloride 106 mmol/L (98-107); Glucose 80 mg/dL (80-115); Potassium 3.6 mmol/L (3.5-5.1); Sodium 140 mmol/L (136-145)
[2020-09-13] MEDS: CEFAZOLIN 2 GM in Premix Bag 1 BAG IVPB SCH ×3 (08:18→21:41)
[2020-09-13] MEDS: Enoxaparin Sodium 40 MG/0.4 ML SYRINGE SC SCH (08:19)
[2020-09-13] MEDS: Saccharomyces boulardii 250 MG CAP PO SCH (08:19)
[2020-09-13] MEDS: Carvedilol 6.25 MG TAB PO SCH ×2 (08:19→18:00)
[2020-09-13] MEDS: Lisinopril 5 MG TAB PO SCH (08:19)
[2020-09-13] MEDS: HYDROcodone/Acetaminophen 5/325 mg Tablet PO PRN ×2 (08:20→18:00)
[2020-09-13] MEDS: Lantus 1000 UNITS/10 ML VIAL SC SCH ×2 (08:20→21:42)
[2020-09-13] MEDS: diphenhydrAMINE 25 MG CAP PO PRN ×2 (08:29→18:08)
[2020-09-13] MEDS: Senokot S 8.6-50 MG TAB PO SCH ×2 (08:33→20:54)
[2020-09-13] MEDS: Polyethylene Glycol 3350 17 GM Packet PO SCH (08:34)
[2020-09-13] MEDS ORDERED: VANCOMYCIN 1.75 GM/350 ML BAG 1.75 GM in Premix Bag 1 BAG IVPB SCH (17:00)
[2020-09-13] MEDS: Bisacodyl 10 MG SUPP PR SCH (20:53)
[2020-09-13] MEDS: Acetaminophen 325 MG TAB PO PRN (21:39)
[2020-09-13] MEDS: Sodium Chloride 0.9% 1,000 ML IV SCH (21:41)
[2020-09-14] MEDS: CEFAZOLIN 2 GM in Premix Bag 1 BAG IVPB SCH ×3 (05:45→22:09)
[2020-09-14 06:58] LABS: Anion Gap 13 mmol/L (10-20); BUN (Urea Nitrogen) 9 mg/dL (9.8-20.1); Calc. Creatinine Clearance 123 mL/min (70-130); Calcium 8.9 mg/dL (7.8-10.44); Carbon Dioxide 21 mmol/L (23-31); Chloride 106 mmol/L (98-107); Glucose 122 mg/dL (80-115); Potassium 4.3 mmol/L (3.5-5.1); Sodium 136 mmol/L (136-145)
[2020-09-14] MEDS: Saccharomyces boulardii 250 MG CAP PO SCH (08:57)
[2020-09-14] MEDS: diphenhydrAMINE 25 MG CAP PO PRN ×2 (08:57→20:27)
[2020-09-14] MEDS: Lisinopril 5 MG TAB PO SCH (08:57)
[2020-09-14] MEDS: Senokot S 8.6-50 MG TAB PO SCH ×2 (08:57→20:26)
[2020-09-14] MEDS: Carvedilol 6.25 MG TAB PO SCH ×2 (08:57→17:26)
[2020-09-14] MEDS: HYDROcodone/Acetaminophen 5/325 mg Tablet PO PRN ×2 (08:57→20:26)
[2020-09-14] MEDS: Polyethylene Glycol 3350 17 GM Packet PO SCH (09:03)
[2020-09-14] MEDS: Enoxaparin Sodium 40 MG/0.4 ML SYRINGE SC SCH (09:08)
[2020-09-14] MEDS: Lantus 1000 UNITS/10 ML VIAL SC SCH ×2 (09:08→20:32)
[2020-09-14] MEDS: Acetaminophen 325 MG TAB PO PRN (12:40)
[2020-09-14] MEDS: Bisacodyl 10 MG SUPP PR SCH (20:28)
[2020-09-14] MEDS: Sodium Chloride 0.9% 1,000 ML IV SCH (20:39)
[2020-09-15] MEDS: CEFAZOLIN 2 GM in Premix Bag 1 BAG IVPB SCH ×3 (05:19→23:00)
[2020-09-15 06:00] LABS: Anion Gap 15 mmol/L (10-20); BUN (Urea Nitrogen) 9 mg/dL (9.8-20.1); Calc. Creatinine Clearance 124 mL/min (70-130); Calcium 9.1 mg/dL (7.8-10.44); Carbon Dioxide 22 mmol/L (23-31); Chloride 104 mmol/L (98-107); Glucose 125 mg/dL (80-115); Potassium 3.8 mmol/L (3.5-5.1); Sodium 137 mmol/L (136-145)
[2020-09-15] MEDS: Enoxaparin Sodium 40 MG/0.4 ML SYRINGE SC SCH (08:48)
[2020-09-15] MEDS: Lisinopril 5 MG TAB PO SCH (08:49)
[2020-09-15] MEDS: Carvedilol 6.25 MG TAB PO SCH ×2 (08:49→16:39)
[2020-09-15] MEDS: Polyethylene Glycol 3350 17 GM Packet PO SCH (08:49)
[2020-09-15] MEDS: Senokot S 8.6-50 MG TAB PO SCH ×2 (08:49→20:58)
[2020-09-15] MEDS: Saccharomyces boulardii 250 MG CAP PO SCH (08:49)
[2020-09-15] MEDS: Lantus 1000 UNITS/10 ML VIAL SC SCH ×2 (09:28→23:57)
[2020-09-15] MEDS: HYDROcodone/Acetaminophen 5/325 mg Tablet PO PRN (15:47)
[2020-09-15] MEDS: diphenhydrAMINE 25 MG CAP PO PRN ×2 (15:50→22:58)
[2020-09-15] MEDS: Bisacodyl 10 MG SUPP PR SCH (20:58)
[2020-09-15] MEDS: Acetaminophen 325 MG TAB PO PRN (22:58)
[2020-09-15] MEDS: Sodium Chloride 0.9% 1,000 ML IV SCH (23:14)
[2020-09-16] MEDS: Acetaminophen 325 MG TAB PO PRN (04:49)
[2020-09-16] MEDS: diphenhydrAMINE 25 MG CAP PO PRN ×2 (04:50→10:33)
[2020-09-16] MEDS: CEFAZOLIN 2 GM in Premix Bag 1 BAG IVPB SCH (05:00)
[2020-09-16] MEDS: Senokot S 8.6-50 MG TAB PO SCH (08:00)
[2020-09-16] MEDS: Carvedilol 6.25 MG TAB PO SCH (08:00)
[2020-09-16] MEDS: Lisinopril 5 MG TAB PO SCH (08:00)
[2020-09-16] MEDS: Saccharomyces boulardii 250 MG CAP PO SCH (08:00)
[2020-09-16] MEDS: Polyethylene Glycol 3350 17 GM Packet PO SCH (08:01)
[2020-09-16] MEDS: Enoxaparin Sodium 40 MG/0.4 ML SYRINGE SC SCH (08:01)
[2020-09-16] MEDS: Lantus 1000 UNITS/10 ML VIAL SC SCH (08:02)
[2020-09-16] MEDS ORDERED: Lisinopril 5 MG TAB PO SCH (09:15)
[2020-09-16] MEDS ORDERED: Rifampin 300 MG CAP PO SCH (10:00)
[2020-09-16] MEDS: HYDROcodone/Acetaminophen 5/325 mg Tablet PO PRN (10:27)
[2020-09-16] MEDS: Insulin Regular 300 UNITS/3 ML VIAL SC PRN (10:29)
[2020-09-16 11:06] VITALS: BP 179/84; TEMP 97.5
[2020-09-17] MEDS ORDERED: Lisinopril 10 MG TAB PO SCH (09:00)
== END 2020-09-16 11:15 | DRG 466 ==
LOC: ERS 06:08 → ERHOLD 09:16 → T4-B 14:47 → SURG A 09-06 08:05 → T4-B 09-06 09:19 → SURG A 09-06 14:21
PROVIDERS: ADMIT Internal Medicine; ATTEND Internal Medicine
PROC: 0S993ZX Drainage of Right Hip Joint, Percutaneous Approach, Diagnostic (ICD-10-PCS; 2020-09-05)
PROC: 0SR9029 Replacement of Right Hip Joint with Metal on Polyethylene Synthetic Substitute, Cemented, Open Approach (ICD-10-PCS; principal; 2020-09-06)
PROC: 0SP90JZ Removal of Synthetic Substitute from Right Hip Joint, Open Approach (ICD-10-PCS; 2020-09-06)
PROC: 30233N1 Transfusion of Nonautologous Red Blood Cells into Peripheral Vein, Percutaneous Approach (ICD-10-PCS; 2020-09-06)
PROC: 02HV33Z Insertion of Infusion Device into Superior Vena Cava, Percutaneous Approach (ICD-10-PCS; 2020-09-15)
PROC: B518ZZA Fluoroscopy of Superior Vena Cava, Guidance (ICD-10-PCS; 2020-09-15)
PROC: B548ZZA Ultrasonography of Superior Vena Cava, Guidance (ICD-10-PCS; 2020-09-15)
DX: T84.51XA Infection and inflammatory reaction due to internal right hip prosthesis, initial encounter (principal); A41.01 Sepsis due to Methicillin susceptible Staphylococcus aureus; R65.20 Severe sepsis without septic shock; Z20.822 Contact with and (suspected) exposure to COVID-19; M00.051 Staphylococcal arthritis, right hip; N17.9 Acute kidney failure, unspecified; E87.1 Hypo-osmolality and hyponatremia; Z68.42 Body mass index [BMI] 45.0-49.9, adult; E87.2 Acidosis; N18.2 Chronic kidney disease, stage 2 (mild); E11.22 Type 2 diabetes mellitus with diabetic chronic kidney disease; Y83.1 Surgical operation with implant of artificial internal device as the cause of abnormal reaction of the patient, or of later complication, without mention of misadventure at the time of the procedure; E78.00 Pure hypercholesterolemia, unspecified; I12.9 Hypertensive chronic kidney disease with stage 1 through stage 4 chronic kidney disease, or unspecified chronic kidney disease; Z96.653 Presence of artificial knee joint, bilateral; Z96.642 Presence of left artificial hip joint; D63.1 Anemia in chronic kidney disease; J32.9 Chronic sinusitis, unspecified; E11.65 Type 2 diabetes mellitus with hyperglycemia; M89.49 Other hypertrophic osteoarthropathy, multiple sites; E66.01 Morbid (severe) obesity due to excess calories; G47.30 Sleep apnea, unspecified; E87.6 Hypokalemia; K59.00 Constipation, unspecified; E83.42 Hypomagnesemia; Z90.49 Acquired absence of other specified parts of digestive tract; Z90.710 Acquired absence of both cervix and uterus; Z79.4 Long term (current) use of insulin; Z88.6 Allergy status to analgesic agent; Z88.5 Allergy status to narcotic agent; Z88.0 Allergy status to penicillin; Z88.8 Allergy status to other drugs, medicaments and biological substances; Z91.09 Other allergy status, other than to drugs and biological substances; Z79.899 Other long term (current) drug therapy; Z98.42 Cataract extraction status, left eye; Z98.41 Cataract extraction status, right eye
CPT/HCPCS: 0240U; 20610; 36415; 36416; 36430; 36569; 71045; 72170; 77002; 80048; 80053; 80202; 81003; 81015; 82945; 83605; 83735; 83880; 84157; 84484; 85025; 85060; 86140; 86850; 86900; 86901; 87040; 87070; 87077; 87149; 87186; 87205; 89051; 89060; 93005; 94760; 96365; 96367; C1713; C1751; C1776; J0690; J1200; J1650; J1815; J2250; J2405; J2704; J3010; J3260; J3370; J3475; J3490; P9016; Q0163

== ENCOUNTER → 2020-09-21 | Day surgery (SDC) | payer MEDICARE, MEDICAID ==
[~2020-09-21] MED LIST changes: -Magnevist 469MG/ML 20 ML VIAL ONE
== END ==
LOC: SPEC 13:28
PROVIDERS: ATTEND Internal Medicine
PROC: 02PY33Z Removal of Infusion Device from Great Vessel, Percutaneous Approach (ICD-10-PCS; principal; 2020-09-21)
PROC: 02HV33Z Insertion of Infusion Device into Superior Vena Cava, Percutaneous Approach (ICD-10-PCS; 2020-09-21)
DX: T82.818A Embolism due to vascular prosthetic devices, implants and grafts, initial encounter (principal); M00.9 Pyogenic arthritis, unspecified; Z79.2 Long term (current) use of antibiotics; Z88.0 Allergy status to penicillin; Z88.3 Allergy status to other anti-infective agents; Z88.5 Allergy status to narcotic agent; Z91.048 Other nonmedicinal substance allergy status
CPT/HCPCS: 36584; C1751; J1644

== ENCOUNTER 2020-10-05 22:52 | Emergency (ER) | payer MEDICARE, MEDICAID ==
[~2020-10-05 22:52] MED LIST changes: -Heparin 1,000 UNITS/ML VIAL ONE; +Iopamidol-370 76% 500 ML 1 ML ONE
[2020-10-06 00:04] LABS: #Eosinphils 0.4 thou/uL (0.0-0.7); #Neutrophils 5.7 thou/uL (1.40-6.50); %Eosinophils 4.3 % (0.0-10.0); %Lymphocytes 29.5 % (21.0-51.0); %Monocytes 9.6 % (0.0-10.0); %Neutrophils 56.7 % (42.0-75.0); Hemoglobin 10.3 g/dL (12.0-16.0); Mean Corpuscular HGB CONC 32.1 g/dL (32.0-36.0); Mean Corpuscular Hemoglobin 29.4 pg (27.0-31.0); Mean Corpuscular Volume 91.7 fL (78.0-98.0); Mean Platelet Volume 7.3 fL (7.4-10.4); Platelet Count 285 thou/uL (130-400); RBC Distribution Width 13.4 % (11.5-14.5); Red Blood Cell (RBC) Count 3.51 mill/uL (4.20-5.40)
[2020-10-06 00:26] LABS: ALT (SGPT) Less than 7 U/L (8-55); AST (SGOT) 16 U/L (5-34); Albumin 3.6 g/dL (3.4-4.8); Alkaline Phosphatase 138 U/L (40-110); Anion Gap 13 mmol/L (10-20); BUN (Urea Nitrogen) 10 mg/dL (9.8-20.1); Bilirubin, Total 0.3 mg/dL (0.2-1.2); Calc. Creatinine Clearance 0 mL/min (70-130); Calcium 9.6 mg/dL (7.8-10.44); Carbon Dioxide 22 mmol/L (23-31); Chloride 106 mmol/L (98-107); Globulin 5.4 g/dL (2.4-3.5); Glucose 128 mg/dL (80-115); Potassium 3.8 mmol/L (3.5-5.1); Sodium 137 mmol/L (136-145)
[2020-10-06 02:19] LABS: Bilirubin Negative (Negative); Blood, Urine Negative (Negative); Clarity Clear (Clear); Glucose, Urine (Dipstick) Normal (Negative); Ketone, Urine Negative (Negative); Leukocyte Negative Leu/uL (Negative); Nitrite Negative (Negative); Protein, Urine (Dipstick) Negative (Neg-Trace); Specific Gravity, Urine 1.041 (1.002-1.036); Urobilinogen Normal mg/dL (Less than 2)
== END 2020-10-06 03:05 ==
LOC: ERS 22:52
DX: S71.001A Unspecified open wound, right hip, initial encounter (principal); L08.9 Local infection of the skin and subcutaneous tissue, unspecified; E11.9 Type 2 diabetes mellitus without complications; E78.00 Pure hypercholesterolemia, unspecified; I10 Essential (primary) hypertension; E78.5 Hyperlipidemia, unspecified; X58.XXXA Exposure to other specified factors, initial encounter
CPT/HCPCS: 36415; 72193; 80053; 81003; 83605; 85025; 86140; 87040; 87086; Q9967

== ENCOUNTER 2021-01-31 12:29 | Outpatient (CLI) | payer MEDICARE, OTHER | END 2021-01-31 12:30 | disposition home or self-care (01) | LOC: BICCT 12:29 | PROVIDERS: ATTEND Nurse Practitioner Family | DX: M25.552 Pain in left hip (principal) ==

== ENCOUNTER 2021-03-28 11:14 | Outpatient (CLI) | payer MEDICARE, MEDICAID | END 2021-03-28 11:15 | disposition home or self-care (01) | LOC: MRI 11:14 | PROVIDERS: ATTEND Family Medicine | DX: M51.16 Intervertebral disc disorders with radiculopathy, lumbar region (principal); M48.061 Spinal stenosis, lumbar region without neurogenic claudication; R20.0 Anesthesia of skin; M47.26 Other spondylosis with radiculopathy, lumbar region; M47.27 Other spondylosis with radiculopathy, lumbosacral region; M48.07 Spinal stenosis, lumbosacral region | CPT/HCPCS: 72148 ==